=== PATIENT | female | born 1940 | race Caucasian/White ===

== ENCOUNTER 2018-04-08 11:22 | Inpatient (IN) ==
[2018-04-08] MEDS ORDERED: levoFLOXacin 250 MG TABLET PO STA (11:44)
[2018-04-08] MEDS ORDERED: SODIUM CHLORIDE 0.9% 1000ML 1,000 ML IV SCH (11:45)
[2018-04-08 12:00] LABS: Hematocrit (blood only) 38.7 % (37-47); Hemoglobin 12.9 g/dL (12.0-16.0); Mean Corpuscular Hgb Conc 33.3 g/dL (32-36); Mean Corpuscular Volume 100.3 fL (80-100); Platelet Count 480 K/uL (130-400); RDW Coefficient of Variation 13.4 % (11.5-14.5); RDW Standard Deviation 49.4 fL (36.4-46.3); Red Blood Count 3.86 M/uL (4.2-5.4); White Blood Count 24.12 K/uL (4.8-10.8)
[2018-04-08 12:08] LABS: Partial Thromboplastin Ratio 1.3; Partial Thromboplastin Time 32.8 Seconds (21.0-31.0); Prothrombin Time 10.5 Seconds (9.0-12.0)
--- NOTE | 2018-04-08 12:11 | XRay Report ---
XR chest 1V portable CLINICAL HISTORY: Dyspnea COMPARISON STUDY: None FINDINGS: Thoracolumbar scoliosis. Tortuous thoracic aorta. Moderate emphysematous change. Developing components of mild congestive failure with a potential wilmer y parenchymal infiltrate medial left base. IMPRESSION: 1. Thoracolumbar scoliosis. 2. Emphysematous change. 3. Pulmonary vascular congestion with a potential superimposed left basilar infiltrate. The above report was generated using voice recognition software. It may contain grammatical, syntax or spelling errors. Electronically signed by: Cachorro Richards M.D. 04/08/2018 12:10 PM
[2018-04-08 12:17] LABS: Alanine Aminotransferase 15 U/L (12-78); Albumin Level 2.8 gm/dl (3.4-5.0); Aspartate Aminotransferase 19 U/L (15-37); BUN Creatinine Ratio 15.6 (10-20); Blood Urea Nitrogen 11 mg/dl (7-18); Calcium 9.5 mg/dl (8.5-10.1); Carbon Dioxide 28 mmol/L (21-32); Chloride 98 mmol/L (98-107); Creatinine Clr Calc Pharmacy 41.6 ml/min; Est GFR (African American) 94.3; Est GFR (Non-African American) 81.3; Glucose 104 mg/dl (70-99); Potassium 2.8 mmol/L (3.5-5.1); Sodium 133 mmol/L (136-145)
[2018-04-08 12:20] LABS: Albumin Globulin Ratio 0.6 (0.9-2); Alkaline Phosphatase 106 U/L (45-117); Bilirubin,Total 0.6 mg/dl (0.2-1); Globulin 4.9 gm/dl (2.5-4.0); Total Protein 7.7 gm/dl (6.4-8.2); Troponin I < 0.015 ng/ml (0-0.045)
[2018-04-08 12:25] LABS: Basophils # (auto) 0.05 K/uL (0-0.2); Basophils % (auto) 0.2 %; Dohle Bodies 1+; Immature Granulocytes # (auto) 0.11 K/uL (0.00-0.02); Immature Granulocytes % (auto) 0.5 %; Lymphocytes # (auto) 0.72 K/uL (1.2-3.4); Monocytes # (auto) 1.67 K/uL (0.11-0.59); Monocytes % (auto) 6.9 %; Neutrophils # (auto) 21.57 K/uL (1.4-6.5); Neutrophils % (auto) 89.4 %
[2018-04-08 12:56] LABS: Influenza A virus by PCR Neg for Influ A (Neg); Influenza B virus by PCR Neg for Influ B (Neg)
[2018-04-08] MEDS ORDERED: cefTRIAXone SODIUM 1,000 MG/50 ML BAG IV STA (13:07)
--- NOTE | 2018-04-08 14:13 | History & Physical Report ---
Date of Service April 08, 2018 Assessment & Plan (1) Pneumonia: (2) COPD exacerbation: Reported green productive cough x 1 week with SOB for couple of days. Sent from walk in clinic with reported pulse ox:90% on RA and was given albuterol neb there. In ER T: 37.7, P: 98, R: up to 28, BP: 142/70, 97% on RA. WBC: 24, Hgb:12.9, BUN : 11, Cr: 0.7, negative troponin. Negative influenza swab. Lactate: 1.3 CXR: Thoracolumbar scoliosis. Emphysematous change. Pulmonary vascular congestion with a potential superimposed left basilar infiltrate. In ER given 1L NSS, Levaquin 750mg IV, Rocephin 1GM IV Suspected pneumonia and COPD exacerbation -Pt appears dehydrated -Pending blood cultures -MRSA swab -Rocephin, doxycycline -Xopenex/Atrovent nebs -IVF -CBC, BMP, magnesium in am (3) Hypokalemia: K: 2.8 -replace and monitor (4) Tobacco abuse: -smoking cessation advised -nicotine patch DVT Prophylaxis -lovenox SQ Disposition admit__ DNR as per discussion with pt Follows with Julia Ruiz PA-C [facility] for routine care Pt was seen with Dr Lynch. See addendum History of Present Illness Chief Complaint: SOB and cough Primary Care Provider: Julia Ruiz PA-C Pt is 77 y/o F with PMH tobacco abuse presented to ER with c/o green productive cough x 1 week. States having SOB and chest tightness past couple of days. Has been having tactile fever, hasn't taken temperature and has decreased appetite with decreased oral intake past couple of days. Pt reports went to walk in clinic today at [facility] and reported O2 sat at 90% and was given albuterol treatment and referred to ER. Denies influenza vaccine this season. Denies ill contacts or recent antibiotic use. Reports hx pneumonia last winter that did not require hospitalization. She denies any known medical problems. Denies fever/chills, diaphoresis, N/V/D/C, YOUNG, dizziness, syncope, vision changes, neck pain, CP, orthopnea, palpitations, hemoptysis, sore throat , choking, otalgia, abdominal pain, paresthesias, extremity weakness, extremity edema, rashes, urinary symptoms. Denies hx MRSA, or recent hospitalizations. Allergies Allergy/AdvReac Type Severity Reaction Status Date / Time No Known Allergies Allergy Unverified 04/08/18 11:57 Home Medications Home Medications Medication Instructions Recorded Confirmed Type aspirin 81 mg PO DAILY 04/08/18 04/08/18 History Past Med/Surg History Medical History Tobacco abuse (Chronic) Smoker Surgical History History of cervical spinal surgery (Resolved) History of appendectomy (Resolved) Social History Current Living Situation: Family Current Living Situation Comment: LIVES WITH DAUGHTER Other Information That Helps Us Care for You: No Feels Safe at Home: Yes Safety Concerns: Feels Safe At This Time Smoking Status: Current every day smoker Tobacco Type: cigarettes Cigarettes per Day: approx 1ppd x 56 years Hx Alcohol Use: Yes Alcohol type: beer Alcohol Intake Frequency: a few times a week Hx Substance Use: No Beliefs That Will Affect Care: None Preferred Language: Wolof Communication Ability: Effective Review of Systems All systems reviewed & are unremarkable except as noted in HPI & below Physical Exam 2 Vital Signs (Past 24 Hours): Last Vital Signs Temp 37.7 C H 04/08/18 11:28 Pulse 92 H 04/08/18 13:05 Resp 28 H 04/08/18 13:05 BP 124/64 04/08/18 13:05 Pulse Ox 99 04/08/18 13:05 Physical Exam: General: thin, mild respirtory distress Head: normocephalic, atraumatic Eyes: conjunctiva non-injected, anicteric ENT: normal inspection external ears, nose, mucous membranes dry Neck: supple, trachea midline, non-tender Lungs: R:28 without retractions, speaks sentence, 92% on RA, diminished throughout CV: RRR, no murmur, no pretibial edema Abd: normal BS, soft, non-tender Ext: no cyanosis, no calf tenderness Neuro: A&O x 3, no focal deficits noted, normal affect Skin: warm, dry Results & Data Laboratory Results Short CBC 04/08/18 Range/Units 11:50 WBC 24.12 H (4.8-10.8) K/uL Hgb 12.9 (12.0-16.0) g/dL Hct 38.7 (37-47) % Plt Count 480 H (130-400) K/uL BMP 04/08/18 11:50 Sodium 133 L Potassium 2.8 L Chloride 98 Carbon Dioxide 28 BUN 11 Creatinine 0.72 Glucose 104 H Calcium 9.5 Cardiac Enzymes 04/08/18 Range/Units 11:50 Troponin I < 0.015 (0-0.045) ng/ml Liver Function 04/08/18 Range/Units 11:50 Total Bilirubin 0.6 (0.2-1) mg/dl AST 19 (15-37) U/L ALT 15 (12-78) U/L Alkaline Phosphatase 106 (45-117) U/L Albumin 2.8 L (3.4-5.0) gm/dl Diagnostic Findings CXR: IMPRESSION: 1. Thoracolumbar scoliosis. 2. Emphysematous change. 3. Pulmonary vascular congestion with a potential superimposed left basilar infiltrate. Supervising Physician Co-Signing Physician Notes Agree with above h and p. Briefly 77F with hx of tobacco abuse presents with sob and cough for last few days. Bringing sputum greenish color.No chest pain. No nausea. No diarrhea or constipation. Hemodynamics stable. p/e Ge not in acute distress Cvs s1 and s2 heard no murmurs Rs No accessory muscle use b/l rhonchi heard Abd benign Brushing Operator non focal Ext no edema Labs Reviewed a/p COPD ex Possible pneumonia Iv rocephin and doxycycline nebs atc and prn oxygen iv steroids follow cultures Tobacco abuse counselling
[2018-04-08] MEDS ORDERED: ACETAMINOPHEN 325 MG TAB PO PRN (16:15)
[2018-04-08 16:27] LABS: Appearance Urine Clear (Clear); Bacteria Urine Automated Negative (Negative); Bilirubin Urine Negative (Negative); Color Urine Yellow; Epithelial Cell Urine Auto >30 /lpf (0-5); Glucose Urine UA Negative (Negative); Ketones Urine Trace (Negative); Leukocyte Esterase Urine Trace (Negative); Nitrite Urine Negative (Negative); Protein Urine 1+ (Negative); Specific Gravity Urine 1.014 (1.000-1.030); Urobilinogen Urine Negative (Negative); pH Urine 5.5 (4.5-7.5)
[2018-04-08] MEDS ORDERED: POTASSIUM CHLORIDE 20 MEQ TABCR PO ONE (16:45)
[2018-04-08] MEDS ORDERED: POTASSIUM CHLORIDE 40 MEQ in SODIUM CHLORIDE 0.9% 1000ML 1,000 ML IV SCH ×2 (17:00→20:40)
--- NOTE | 2018-04-08 17:40 | Emergency Department Note ---
Entered by Ilya Mac acting as a scribe for History of Present Illness General Chief complaint: Illness Stated complaint: COUGH, SHORTNESS OF BREATH Source: patient Limitations: no limitations History of Present Illness Provider complaint: Cough/SOB Onset (ago): week(s) (1) Location: chest (Cough/SOB) Pain Consistency: + other (persistent) Maximum Pain Intensity: 2 Quality: + other (Cough/SOB) Associated symptoms: + shortness of breath Treatments prior to arrival: other (Evaluation by [facility] in [place]) The patient is a 77 year old female who presents to the Emergency Room with complaints of a persistent cough and shortness of breath for the past week. The patient states that her symptoms began about 1 week ago with a cough. The cough has persisted over the past 7 days and she is now short of breath. The shortness of breath is associated to the cough, and she breaths well when she is up and moving around as long as she is not coughing. The patient denies any other abdominal pain, nausea, vomiting, diarrhea, or fevers. She did visit [facility] in [place] today who referred her to the Emergency Department for hypoxia on their evaluation. Home Medications Home Medications Medication Instructions Recorded Confirmed Type aspirin 81 mg PO DAILY 04/08/18 04/08/18 History Allergies Allergy/AdvReac Type Severity Reaction Status Date / Time No Known Allergies Allergy Unverified 04/08/18 11:57 Past Med/Surg History Medical History Tobacco abuse (Chronic) Smoker Surgical History History of cervical spinal surgery (Resolved) History of appendectomy (Resolved) Social History Current Living Situation: Family Current Living Situation Comment: LIVES WITH DAUGHTER Other Information That Helps Us Care for You: No Feels Safe at Home: Yes Safety Concerns: Feels Safe At This Time Smoking Status: Current every day smoker Tobacco Type: cigarettes Cigarettes per Day: approx 1ppd x 56 years Hx Alcohol Use: Yes Alcohol type: beer Alcohol Intake Frequency: a few times a week Hx Substance Use: No Beliefs That Will Affect Care: None Preferred Language: Cymro Communication Ability: Effective Review of Systems See HPI for pertinent positives & negatives. and A total of 10 systems reviewed and were otherwise negative Physical Exam Vital Signs Vital Signs - 24 hr 04/08/18 11:28 04/08/18 12:00 04/08/18 12:12 Temperature 37.7 C H Temperature Source Oral Sepsis Recent Fever Within 48 Hours No Sepsis New/Unexplained Change in Mental Status No Sepsis Action Taken by Nursing No Action Required Pulse Rate 98 H Pulse Rate [Apical] 93 H Pulse Rhythm [Apical] Respiratory Rate 16 26 H Respiratory Effort / Characteristics Non-Labored Respiratory Depth Normal Respiratory Pattern Regular Blood Pressure 142/70 H Blood Pressure [Left Arm] 133/82 Blood Pressure Mean 94 Blood Pressure Mean [Left Arm] 99 Blood Pressure Position Sitting Blood Pressure Position [Left Arm] Pulse Oximetry 97 99 99 Oxygen Delivery Method Room Air Room Air Room Air Oxygen Flow Rate 04/08/18 13:05 04/08/18 13:51 04/08/18 14:34 Temperature Temperature Source Sepsis Recent Fever Within 48 Hours Sepsis New/Unexplained Change in Mental Status Sepsis Action Taken by Nursing Pulse Rate Pulse Rate [Apical] 92 H 87 Pulse Rhythm [Apical] Respiratory Rate 28 H 28 H Respiratory Effort / Characteristics Short of Breath SOB on Exertion Respiratory Depth Respiratory Pattern Tachypnea Blood Pressure Blood Pressure [Left Arm] 124/64 125/62 Blood Pressure Mean Blood Pressure Mean [Left Arm] 84 83 Blood Pressure Position Blood Pressure Position [Left Arm] Pulse Oximetry 99 98 Oxygen Delivery Method Room Air Room Air Room Air Oxygen Flow Rate 04/08/18 16:15 Temperature 38.4 C H Temperature Source Oral Sepsis Recent Fever Within 48 Hours Sepsis New/Unexplained Change in Mental Status Sepsis Action Taken by Nursing Pulse Rate Pulse Rate [Apical] 90 Pulse Rhythm [Apical] Regular Respiratory Rate 18 Respiratory Effort / Characteristics Spontaneous SOB on Exertion Respiratory Depth Normal Respiratory Pattern Blood Pressure Blood Pressure [Left Arm] 149/64 H Blood Pressure Mean Blood Pressure Mean [Left Arm] 92 Blood Pressure Position Blood Pressure Position [Left Arm] Lying Pulse Oximetry 94 Oxygen Delivery Method Nasal Cannula Oxygen Flow Rate 2 GENERAL: Sitting up in bed, alert, ill appearing, mal nourished, cachectic appearing. EYE EXAM: normal conjunctiva. OROPHARYNX: no exudate, no erythema, lips, buccal mucosa, and tongue normal and mucous membranes are moist NECK: supple, no nuchal rigidity, no adenopathy, non-tender LUNGS: Diminished breath sounds throughout. Normal chest wall mechanics HEART: no murmurs, S1 normal and S2 normal ABDOMEN: abdomen soft, non-tender, normo-active bowel, sounds, no masses, no rebound or guarding. BACK: Back is symmetrical on inspection and there is no deformity, no midline tenderness, no CVA tenderness. SKIN: no rashes and no bruising UPPER EXTREMITIES: upper extremities are grossly normal. LOWER EXTREMITIES: No pitting edema. Calves are equal bilaterally. NEURO EXAM: Normal sensorium, cranial nerves II-XII grossly intact, normal speech, no gross weakness of arms, no gross weakness of legs. Course ED COURSE: Vital signs were reviewed and showed febrile and tachycardia. The patients medical record was reviewed The above diagnostic studies were performed and reviewed. ED treatments and interventions as stated above. 1138: The patient was evaluated in room B9. A complete history and physical examination was performed. 1309:I discussed my findings with the patient and she understands and agrees with the treatment plan. Based on the patients age, coexisting illnesses, exam and lab findings the decision to treat as an inpatient was made. The patient remained stable while under my care. The patient will be evaluated for further management. 1322: I reviewed the patient's case with Ying Hahn. She will evaluate the patient for further management. Consultations Consultation #1: 1322: I reviewed the patient's case with Ying Downey Yamilex BYRNES. She will evaluate the patient for further management. Administered Medications Acetaminophen (Tylenol) 650 mg PO Q4H PRN PRN Reason: pain/fever Stop: 05/08/18 16:14 Last Admin: 04/08/18 17:05 Dose: 650 mg Potassium Chloride 40 meq/ (Sodium Chloride) 1,020 mls @ 100 mls/hr IV .[id number] MAHAMED Stop: 04/09/18 13:23 Last Admin: 04/08/18 17:11 Dose: 100 mls/hr Discontinued Medications Sodium Chloride (Nss 1000ml) 1,000 mls @ 999 mls/hr IV .[id number] MAHAMED Stop: 04/08/18 12:45 Last Infusion: 04/08/18 13:12 Dose: 0 mls/hr Admin: 04/08/18 12:11 Dose: 999 mls/hr Ceftriaxone Sodium (Rocephin) 1,000 mg in 50 mls @ 100 mls/hr IV NOW STA Stop: 04/08/18 13:36 Last Infusion: 04/08/18 13:49 Dose: 0 mls/hr Admin: 04/08/18 13:18 Dose: 100 mls/hr Levofloxacin (Levaquin) 750 mg PO NOW STA Stop: 04/08/18 11:45 Last Admin: 04/08/18 12:09 Dose: 750 mg Potassium Chloride (Klor-Con M20) 40 meq PO NOW ONE Stop: 04/08/18 16:46 Last Admin: 04/08/18 17:06 Dose: 40 meq Medical Decision Making Differential Diagnosis Differential diagnosis: Etiologies such as infections, reactive airway disease, COPD, pneumonia, pleural effusion, pulmonary edema, ARDS, pneumothorax, CHF, cardiac ischemia, cardiac tamponade, dysrhythmia, anemia, pulmonary embolism, musculoskeletal, gastrointestinal process, as well as others were entertained. Medical Records Attestation: I reviewed the patient's medical records. Home Medications Current Medication List: was personally reviewed by me Laboratory Data Attestation: I reviewed the patient's lab results. Result diagrams: 04/08/18 11:50 04/08/18 11:50 Lab Results 04/08/18 04/08/18 04/08/18 Range/Units 11:50 11:50 11:50 WBC 24.12 H (4.8-10.8) K/uL RBC 3.86 L (4.2-5.4) M/uL Hgb 12.9 (12.0-16.0) g/dL Hct 38.7 (37-47) % MCV 100.3 H (80-100) fL MCH 33.4 (25-34) pg MCHC 33.3 (32-36) g/dL RDW Std Deviation 49.4 H (36.4-46.3) fL RDW Coeff of Alex 13.4 (11.5-14.5) % Plt Count 480 H (130-400) K/uL MPV 9.0 (7.4-10.4) fL Immature Gran % (Auto) 0.5 % Neut % (Auto) 89.4 % Lymph % (Auto) 3.0 % [place] % (Auto) 6.9 % Eos % (Auto) 0.0 % Baso % (Auto) 0.2 % Immature Gran # (Auto) 0.11 H (0.00-0.02) K/uL Neut # (Auto) 21.57 H (1.4-6.5) K/uL Lymph # (Auto) 0.72 L (1.2-3.4) K/uL [place] # (Auto) 1.67 H (0.11-0.59) K/uL Eos # (Auto) 0.00 (0-0.5) K/uL Baso # (Auto) 0.05 (0-0.2) K/uL Dohle Bodies 1+ PT 10.5 (9.0-12.0) Seconds INR 1.0 (0.9-1.1) APTT 32.8 H (21.0-31.0) Seconds PTT Ratio 1.3 Sodium 133 L (136-145) mmol/L Potassium 2.8 L (3.5-5.1) mmol/L Chloride 98 (98-107) mmol/L Carbon Dioxide 28 (21-32) mmol/L Anion Gap 7.0 (3-11) BUN 11 (7-18) mg/dl Creatinine 0.72 (0.6-1.2) mg/dl Est Cr Clr Drug Dosing 41.6 ml/min Est GFR ( Amer) 94.3 Est GFR (Non-Af Amer) 81.3 BUN/Creatinine Ratio 15.6 (10-20) Glucose 104 H (70-99) mg/dl Lactate (0.4-2.0) mmol/L Calcium 9.5 (8.5-10.1) mg/dl Magnesium (1.8-2.4) mg/dl Total Bilirubin 0.6 (0.2-1) mg/dl AST 19 (15-37) U/L ALT 15 (12-78) U/L Alkaline Phosphatase 106 (45-117) U/L Troponin I < 0.015 (0-0.045) ng/ml Total Protein 7.7 (6.4-8.2) gm/dl Albumin 2.8 L (3.4-5.0) gm/dl Globulin 4.9 H (2.5-4.0) gm/dl Albumin/Globulin Ratio 0.6 L (0.9-2) Urine Color Urine Appearance (Clear) Urine pH (4.5-7.5) Ur Specific [place] (1.000-1.030) Urine Protein (Negative) Urine Glucose (UA) (Negative) Urine Ketones (Negative) Urine Blood (Negative) Urine Nitrite (Negative) Urine Bilirubin (Negative) Urine Urobilinogen (Negative) Ur Leukocyte Esterase (Negative) Urine WBC (Auto) (0-5) /hpf Urine RBC (Auto) (0-4) /hpf U Hyaline Cast (Auto) (0-5) /lpf U Epithel Cells (Auto) (0-5) /lpf Urine Bacteria (Auto) (Negative) Nasal Screen MRSA (PCR) (Negative) Influenza Type A (PCR) (Neg) Influenza Type B (PCR) (Neg) 04/08/18 04/08/18 04/08/18 Range/Units 11:50 11:58 13:52 WBC (4.8-10.8) K/uL RBC (4.2-5.4) M/uL Hgb (12.0-16.0) g/dL Hct (37-47) % MCV (80-100) fL MCH (25-34) pg MCHC (32-36) g/dL RDW Std Deviation (36.4-46.3) fL RDW Coeff of Alex (11.5-14.5) % Plt Count (130-400) K/uL MPV (7.4-10.4) fL Immature Gran % (Auto) % Neut % (Auto) % Lymph % (Auto) % [place] % (Auto) % Eos % (Auto) % Baso % (Auto) % Immature Gran # (Auto) (0.00-0.02) K/uL Neut # (Auto) (1.4-6.5) K/uL Lymph # (Auto) (1.2-3.4) K/uL [place] # (Auto) (0.11-0.59) K/uL Eos # (Auto) (0-0.5) K/uL Baso # (Auto) (0-0.2) K/uL Dohle Bodies PT (9.0-12.0) Seconds INR (0.9-1.1) APTT (21.0-31.0) Seconds PTT Ratio Sodium (136-145) mmol/L Potassium (3.5-5.1) mmol/L Chloride (98-107) mmol/L Carbon Dioxide (21-32) mmol/L Anion Gap (3-11) BUN (7-18) mg/dl Creatinine (0.6-1.2) mg/dl Est Cr Clr Drug Dosing ml/min Est GFR ( Amer) Est GFR (Non-Af Amer) BUN/Creatinine Ratio (10-20) Glucose (70-99) mg/dl Lactate 1.3 (0.4-2.0) mmol/L Calcium (8.5-10.1) mg/dl Magnesium 2.2 (1.8-2.4) mg/dl Total Bilirubin (0.2-1) mg/dl AST (15-37) U/L ALT (12-78) U/L Alkaline Phosphatase (45-117) U/L Troponin I (0-0.045) ng/ml Total Protein (6.4-8.2) gm/dl Albumin (3.4-5.0) gm/dl Globulin (2.5-4.0) gm/dl Albumin/Globulin Ratio (0.9-2) Urine Color Urine Appearance (Clear) Urine pH (4.5-7.5) Ur Specific [place] (1.000-1.030) Urine Protein (Negative) Urine Glucose (UA) (Negative) Urine Ketones (Negative) Urine Blood (Negative) Urine Nitrite (Negative) Urine Bilirubin (Negative) Urine Urobilinogen (Negative) Ur Leukocyte Esterase (Negative) Urine WBC (Auto) (0-5) /hpf Urine RBC (Auto) (0-4) /hpf U Hyaline Cast (Auto) (0-5) /lpf U Epithel Cells (Auto) (0-5) /lpf Urine Bacteria (Auto) (Negative) Nasal Screen MRSA (PCR) (Negative) Influenza Type A (PCR) Neg for Influ A (Neg) Influenza Type B (PCR) Neg for Influ B (Neg) 04/08/18 04/08/18 Range/Units 16:00 16:05 WBC (4.8-10.8) K/uL RBC (4.2-5.4) M/uL Hgb (12.0-16.0) g/dL Hct (37-47) % MCV (80-100) fL MCH (25-34) pg MCHC (32-36) g/dL RDW Std Deviation (36.4-46.3) fL RDW Coeff of Alex (11.5-14.5) % Plt Count (130-400) K/uL MPV (7.4-10.4) fL Immature Gran % (Auto) % Neut % (Auto) % Lymph % (Auto) % [place] % (Auto) % Eos % (Auto) % Baso % (Auto) % Immature Gran # (Auto) (0.00-0.02) K/uL Neut # (Auto) (1.4-6.5) K/uL Lymph # (Auto) (1.2-3.4) K/uL [place] # (Auto) (0.11-0.59) K/uL Eos # (Auto) (0-0.5) K/uL Baso # (Auto) (0-0.2) K/uL Dohle Bodies PT (9.0-12.0) Seconds INR (0.9-1.1) APTT (21.0-31.0) Seconds PTT Ratio Sodium (136-145) mmol/L Potassium (3.5-5.1) mmol/L Chloride (98-107) mmol/L Carbon Dioxide (21-32) mmol/L Anion Gap (3-11) BUN (7-18) mg/dl Creatinine (0.6-1.2) mg/dl Est Cr Clr Drug Dosing ml/min Est GFR ( Amer) Est GFR (Non-Af Amer) BUN/Creatinine Ratio (10-20) Glucose (70-99) mg/dl Lactate (0.4-2.0) mmol/L Calcium (8.5-10.1) mg/dl Magnesium (1.8-2.4) mg/dl Total Bilirubin (0.2-1) mg/dl AST (15-37) U/L ALT (12-78) U/L Alkaline Phosphatase (45-117) U/L Troponin I (0-0.045) ng/ml Total Protein (6.4-8.2) gm/dl Albumin (3.4-5.0) gm/dl Globulin (2.5-4.0) gm/dl Albumin/Globulin Ratio (0.9-2) Urine Color Yellow Urine Appearance Clear (Clear) Urine pH 5.5 (4.5-7.5) Ur Specific [place] 1.014 (1.000-1.030) Urine Protein 1+ H (Negative) Urine Glucose (UA) Negative (Negative) Urine Ketones Trace H (Negative) Urine Blood Negative (Negative) Urine Nitrite Negative (Negative) Urine Bilirubin Negative (Negative) Urine Urobilinogen Negative (Negative) Ur Leukocyte Esterase Trace H (Negative) Urine WBC (Auto) 10-30 H (0-5) /hpf Urine RBC (Auto) 0-4 (0-4) /hpf U Hyaline Cast (Auto) 1-5 (0-5) /lpf U Epithel Cells (Auto) >30 H (0-5) /lpf Urine Bacteria (Auto) Negative (Negative) Nasal Screen MRSA (PCR) Negative (Negative) Influenza Type A (PCR) (Neg) Influenza Type B (PCR) (Neg) Imaging Data Attestation: I personally reviewed and interpreted this imaging study as follows : Radiologist's Impression: XR chest 1V portable CLINICAL HISTORY: Dyspnea COMPARISON STUDY: None FINDINGS: Thoracolumbar scoliosis. Tortuous thoracic aorta. Moderate emphysematous change. Developing components of mild congestive failure with a potential early parenchymal infiltrate medial left base. IMPRESSION: 1. Thoracolumbar scoliosis. 2. Emphysematous change. 3. Pulmonary vascular congestion with a potential superimposed left basilar infiltrate. The above report was generated using voice recognition software. It may contain grammatical, syntax or spelling errors. Electronically signed by: Cachorro Richards M.D. 04/08/2018 12:10 PM ECG Data Attestation: I personally reviewed and interpreted this ECG as follows: Indication: SOB/dyspnea Rate (beats per minute): 98 Rhythm: sinus rhythm Findings: + other (RAD, poor baseline in anterior), + RBBB, + ST depression ( inferior) and + T-wave inversion (septal) Blood Pressure Blood Pressure Findings: Elevated blood pressure Blood Pressure Disposition: elevated BP felt to be situational MDM Narrative Patient is a 77-year-old female who presents to the ER referred in by PCP for hypoxia. She has upper respiratory symptoms. Upon arrival she was found to be febrile at 38.4 and tachycardic. She is placed on 2 L nasal cannula. Labs were obtained and showed a leukocytosis of 24,000. INR was unremarkable. BMP with mild hypokalemia. Lactate was normal. UA was contaminated. Influenza a and B were negative. Chest x-ray does suggest pneumonia. Patient was given IV fluids, IV Levaquin, IV Rocephin and both the patient and daughter were updated at bedside. Patient was admitted to the hospital with sepsis secondary to pneumonia on antibiotics following fluid resuscitation. Impression & Plan Sepsis, Pneumonia, Hypoxia Discharge Plan Visit Data *Final* Discharge Date/Time: 04/08/18 14:54 Chief Complaint: Illness Stated Complaint: COUGH, SHORTNESS OF BREATH ED Provider: Jovanny Caldera Discharge Problem: Sepsis, Pneumonia, Hypoxia Patient Disposition: Admitted As Inpatient Discharge Instructions Interventions: ED Discharge Assessment Last Done: 04/08/18 14:54 The scribe's documentation has been prepared under my direction and personally reviewed by me in its entirety. I confirm that the note above accurately reflects all work, treatment, procedures, and medical decision making performed by me.
[2018-04-08] MEDS: IPRATROPIUM BROMIDE NEB SOLN 0.02% 2.5 ML VIAL INH SCH (18:57)
[2018-04-08] MEDS: LEVALBUTEROL HCL 0.63 MG/3 ML NEB NEB SCH (18:57)
[2018-04-08] MEDS: methylPREDNISolone 40 MG in SYRINGE 0 ML IV SCH (19:01)
[2018-04-08] MEDS ORDERED: COUGH DROP (SUGAR FREE) LOZ 24 LOZ/1 BOX BUCCAL PRN (19:49)
[2018-04-08] MEDS ORDERED: COUGH DROP (SUGAR FREE) LOZ 24 LOZ/1 BOX BUCCAL ONE (19:53)
[2018-04-08] MEDS: GUAIFENESIN/CODEINE 100MG/10MG 5ML UDC PO PRN (19:56)
[2018-04-08] MEDS ORDERED: XOPENEX/ATROVENT 0.63mg/0.5MG NEB COMBO NEB SCH (20:00)
[2018-04-08 20:33] LABS: BUN Creatinine Ratio 18.5 (10-20); Calcium 8.4 mg/dl (8.5-10.1); Creatinine Clr Calc Pharmacy 51.6 ml/min; Est GFR (African American) 103.8; Est GFR (Non-African American) 89.5
[2018-04-08 20:34] LABS: Potassium 3.6 mmol/L (3.5-5.1)
[2018-04-08] MEDS: DOXYCYCLINE HYCLATE 100 MG in DEXTROSE 5% 100 ML IV SCH (21:16)
[2018-04-08] MEDS: ENOXAPARIN INJ 30 MG/0.3 ML SYR SQ SCH (21:21)
[2018-04-09] MEDS: GUAIFENESIN/CODEINE 100MG/10MG 5ML UDC PO PRN ×3 (01:23→20:57)
[2018-04-09] MEDS: methylPREDNISolone 40 MG in SYRINGE 0 ML IV SCH ×2 (01:23→09:37)
[2018-04-09] MEDS: IPRATROPIUM BROMIDE NEB SOLN 0.02% 2.5 ML VIAL INH SCH ×4 (02:03→20:00)
[2018-04-09] MEDS: LEVALBUTEROL HCL 0.63 MG/3 ML NEB NEB SCH ×4 (02:03→20:00)
[2018-04-09] MEDS ORDERED: NSS + 20MEQ KCL 20 MEQ/1,000 ML BAG IV SCH (03:00)
[2018-04-09 07:42] LABS: Basophils # (auto) 0.01 K/uL (0-0.2); Basophils % (auto) 0.1 %; Hematocrit (blood only) 33.2 % (37-47); Hemoglobin 10.9 g/dL (12.0-16.0); Immature Granulocytes # (auto) 0.06 K/uL (0.00-0.02); Immature Granulocytes % (auto) 0.4 %; Lymphocytes # (auto) 0.38 K/uL (1.2-3.4); Lymphocytes % (auto) 2.6 %; Mean Corpuscular Hgb Conc 32.8 g/dL (32-36); Mean Corpuscular Volume 100.9 fL (80-100); Mean Platelet Volume 9.1 fL (7.4-10.4); Monocytes # (auto) 0.25 K/uL (0.11-0.59); Monocytes % (auto) 1.7 %; Neutrophils % (auto) 95.2 %; Platelet Count 469 K/uL (130-400); RDW Coefficient of Variation 13.5 % (11.5-14.5); RDW Standard Deviation 49.9 fL (36.4-46.3); Red Blood Count 3.29 M/uL (4.2-5.4)
[2018-04-09] MEDS: cefTRIAXone SODIUM 1,000 MG in DEXTROSE 5% 50 ML IV SCH (08:17)
[2018-04-09] MEDS: NICOTINE 14 MG/24 HR PATCH TD SCH (08:17)
[2018-04-09] MEDS: ASPIRIN 81 MG ECTAB PO SCH (08:17)
[2018-04-09 08:24] LABS: BUN Creatinine Ratio 24.8 (10-20); Calcium 8.8 mg/dl (8.5-10.1); Creatinine Clr Calc Pharmacy 68.7 ml/min; Est GFR (African American) 112.8; Est GFR (Non-African American) 97.3; Magnesium 2.1 mg/dl (1.8-2.4); Potassium 4.2 mmol/L (3.5-5.1)
[2018-04-09] MEDS: DOXYCYCLINE HYCLATE 100 MG in DEXTROSE 5% 100 ML IV SCH ×2 (08:25→21:01)
--- NOTE | 2018-04-09 13:48 | Hospitalist Progress Note ---
Date of Service April 09, 2018 Assessment & Plan (1) Pneumonia: (2) COPD exacerbation: Sepsis Pneumonia-community acquired Mild COPD exacerbation Dehydration --CXR:Thoracolumbar scoliosis. Emphysematous change. Pulmonary vascular congestion with a potential superimposed left basilar infiltrate. --Received IV fluids Blood Culture:pending MRSA swab: Negative Flu Screen; Negative Continue Rocephin, doxycycline Day #2 Continue nebs, Solu Medrol (3) Hypokalemia: Resolved Monitor electrolytes (4) Tobacco abuse: smoking cessation advised nicotine patch Moderate Protein-calorie malnutrition Cachexia BMI:16.5 Bender Machine consulted DVT Px: lovenox SQ Code Status: DNR Disposition Follows with Julia Ruiz PA-C [facility] for routine care Subjective Patient is seen and examined at bedside Doing much better today Cough is improving Denies chest pain, dyspnea, dizziness, abd pain No other complaints Physical Exam 2 Vital Signs (Past 24 Hours): Last Vital Signs Temp 36.8 C 04/09/18 11:43 Pulse 72 04/09/18 11:43 Resp 20 04/09/18 11:43 BP 122/74 04/09/18 11:43 Pulse Ox 95 04/09/18 11:43 Physical Exam: Physical Exam: Vitals signs as noted above General Appearance:Thin, no apparent distress Head: normocephalic, Atraumatic Eyes: normal inspection, EOMI Neck: supple, Trachea midline Respiratory/Chest: Decreased breath sounds, + Right basal crackles Cardiovascular: S1, S2, No murmur Abdomen/GI:Soft, Non tender, Bowel sounds present Extremities/Musculoskelatal:normal inspection, no edema Neurologic/Psych:AAOX3, grossly no focal neurological deficits Skin: normal color, warm Results & Data Laboratory Results Short CBC 04/09/18 Range/Units 07:13 WBC 14.70 H (4.8-10.8) K/uL Hgb 10.9 L (12.0-16.0) g/dL Hct 33.2 L (37-47) % Plt Count 469 H (130-400) K/uL BMP 04/08/18 04/09/18 19:53 07:13 Sodium 134 L 136 Potassium 3.6 D 4.2 D Chloride 99 104 Carbon Dioxide 25 28 BUN 11 11 Creatinine 0.58 L 0.45 L Glucose 110 H 133 H Calcium 8.4 L 8.8 Urine 04/08/18 Range/Units 16:00 Urine Color Yellow Urine Appearance Clear (Clear) Urine pH 5.5 (4.5-7.5) Ur Specific [place] 1.014 (1.000-1.030) Urine Protein 1+ H (Negative) Urine Glucose (UA) Negative (Negative) _ (1) Pneumonia Aspiration pneumonia type: Laterality: unspecified laterality Lung location : unspecified part of lung Pneumonia type: due to unspecified organism Qualified Code(s): J18.9 - Pneumonia, unspecified organism
[2018-04-09] MEDS: ENOXAPARIN INJ 30 MG/0.3 ML SYR SQ SCH (20:58)
[2018-04-10] MEDS: IPRATROPIUM BROMIDE NEB SOLN 0.02% 2.5 ML VIAL INH SCH ×4 (01:51→19:21)
[2018-04-10] MEDS: LEVALBUTEROL HCL 0.63 MG/3 ML NEB NEB SCH ×4 (01:52→19:21)
[2018-04-10 07:02] LABS: Hematocrit (blood only) 31.9 % (37-47); Hemoglobin 10.1 g/dL (12.0-16.0); Mean Corpuscular Hgb Conc 31.7 g/dL (32-36); Mean Corpuscular Volume 101.3 fL (80-100); Mean Platelet Volume 9.2 fL (7.4-10.4); Platelet Count 456 K/uL (130-400); RDW Coefficient of Variation 13.8 % (11.5-14.5); RDW Standard Deviation 51.6 fL (36.4-46.3); Red Blood Count 3.15 M/uL (4.2-5.4); White Blood Count 16.29 K/uL (4.8-10.8)
[2018-04-10 07:28] LABS: BUN Creatinine Ratio 29.8 (10-20); Calcium 9.4 mg/dl (8.5-10.1); Creatinine Clr Calc Pharmacy 67.8 ml/min; Est GFR (African American) 111.2; Est GFR (Non-African American) 95.9; Potassium 3.7 mmol/L (3.5-5.1)
[2018-04-10] MEDS: ASPIRIN 81 MG ECTAB PO SCH (08:20)
[2018-04-10] MEDS: NICOTINE 14 MG/24 HR PATCH TD SCH (08:21)
[2018-04-10] MEDS ORDERED: methylPREDNISolone 40 MG in SYRINGE 0 ML IV SCH (09:00)
[2018-04-10] MEDS: cefTRIAXone SODIUM 1,000 MG in DEXTROSE 5% 50 ML IV SCH (09:47)
[2018-04-10] MEDS: DOXYCYCLINE HYCLATE 100 MG in DEXTROSE 5% 100 ML IV SCH ×2 (10:30→21:17)
--- NOTE | 2018-04-10 12:39 | Hospitalist Progress Note ---
Date of Service April 10, 2018 Assessment & Plan (1) Pneumonia: (2) COPD exacerbation: Sepsis Pneumonia-community acquired Mild COPD exacerbation Dehydration --CXR:Thoracolumbar scoliosis. Emphysematous change. Pulmonary vascular congestion with a potential superimposed left basilar infiltrate. --Received IV fluids Blood Culture: No growth to date MRSA swab: Negative Flu Screen; Negative Continue Rocephin, doxycycline Day #3 Continue nebs, Solu Medrol>>Transition to prednisone Wean off oxygen as able (3) Hypokalemia: Resolved Monitor electrolytes (4) Tobacco abuse: smoking cessation advised nicotine patch Moderate Protein-calorie malnutrition Cachexia BMI:16.5 It Admin consulted DVT Px: lovenox SQ Code Status: DNR Disposition Follows with Julia Ruiz PA-C [facility] for routine care Subjective Patient is seen and examined at bedside Patient continues to improve Less Cough Breathing improved Denies chest pain, dizziness, abd pain No new complaints Physical Exam 2 Vital Signs (Past 24 Hours): Last Vital Signs Temp 36.8 C 04/10/18 07:22 Pulse 66 04/10/18 07:22 Resp 20 04/10/18 07:22 BP 119/72 04/10/18 07:22 Pulse Ox 90 04/10/18 07:22 Physical Exam: Physical Exam: Vitals signs as noted above General Appearance:Thin, no apparent distress Head: normocephalic, Atraumatic Eyes: normal inspection, EOMI Neck: supple, Trachea midline Respiratory/Chest: Decreased breath sounds, CTA Cardiovascular: S1, S2, No murmur Abdomen/GI:Soft, Non tender, Bowel sounds present Extremities/Musculoskelatal:normal inspection, no edema Neurologic/Psych:AAOX3, grossly no focal neurological deficits Skin: normal color, warm Results & Data Laboratory Results Short CBC 04/10/18 Range/Units 06:44 WBC 16.29 H (4.8-10.8) K/uL Hgb 10.1 L (12.0-16.0) g/dL Hct 31.9 L (37-47) % Plt Count 456 H (130-400) K/uL BMP 04/10/18 06:44 Sodium 139 Potassium 3.7 Chloride 107 Carbon Dioxide 30 BUN 14 Creatinine 0.47 L Glucose 87 Calcium 9.4 _ (1) Pneumonia Aspiration pneumonia type: Laterality: unspecified laterality Lung location : unspecified part of lung Pneumonia type: due to unspecified organism Qualified Code(s): J18.9 - Pneumonia, unspecified organism
[2018-04-10] MEDS: GUAIFENESIN/CODEINE 100MG/10MG 5ML UDC PO PRN ×2 (14:40→20:51)
[2018-04-10] MEDS: ENOXAPARIN INJ 30 MG/0.3 ML SYR SQ SCH (21:18)
[2018-04-11] MEDS: LEVALBUTEROL HCL 0.63 MG/3 ML NEB NEB SCH ×2 (02:00→07:35)
[2018-04-11] MEDS: IPRATROPIUM BROMIDE NEB SOLN 0.02% 2.5 ML VIAL INH SCH ×2 (02:00→07:35)
[2018-04-11 07:08] LABS: Hematocrit (blood only) 35.7 % (37-47); Hemoglobin 11.3 g/dL (12.0-16.0); Mean Corpuscular Hgb Conc 31.7 g/dL (32-36); Mean Corpuscular Volume 101.4 fL (80-100); Mean Platelet Volume 9.3 fL (7.4-10.4); Platelet Count 525 K/uL (130-400); RDW Coefficient of Variation 13.9 % (11.5-14.5); RDW Standard Deviation 51.8 fL (36.4-46.3); Red Blood Count 3.52 M/uL (4.2-5.4); White Blood Count 9.81 K/uL (4.8-10.8)
[2018-04-11 07:40] LABS: BUN Creatinine Ratio 28.6 (10-20); Calcium 9.5 mg/dl (8.5-10.1); Creatinine Clr Calc Pharmacy 66.6 ml/min; Est GFR (African American) 110.4; Est GFR (Non-African American) 95.3
[2018-04-11] MEDS: cefTRIAXone SODIUM 1,000 MG in DEXTROSE 5% 50 ML IV SCH (08:10)
[2018-04-11] MEDS: ASPIRIN 81 MG ECTAB PO SCH (08:12)
[2018-04-11] MEDS: NICOTINE 14 MG/24 HR PATCH TD SCH (08:12)
[2018-04-11] MEDS ORDERED: predniSONE 10 MG TABLET PO SCH (09:00)
[2018-04-11] MEDS: DOXYCYCLINE HYCLATE 100 MG in DEXTROSE 5% 100 ML IV SCH (09:11)
--- NOTE | 2018-04-11 12:55 | Hospitalist Progress Note ---
Date of Service April 11, 2018 Assessment & Plan (1) Pneumonia: (2) COPD exacerbation: Sepsis Pneumonia-community acquired Mild COPD exacerbation Dehydration --CXR:Thoracolumbar scoliosis. Emphysematous change. Pulmonary vascular congestion with a potential superimposed left basilar infiltrate. 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 DVT Px: lovenox SQ Code Status: DNR Disposition Follows with Julia Ruiz PA-C [facility] for routine care Subjective Patient is seen and examined at bedside Patient states her cough and dyspnea have much improved No new complaints Denies chest pain, dizziness, abd pain Physical Exam 2 Vital Signs (Past 24 Hours): Last Vital Signs Temp 36.6 C 04/11/18 07:18 Pulse 66 04/11/18 07:37 Resp 16 04/11/18 07:37 BP 148/75 H 04/11/18 07:18 Pulse Ox 90 04/11/18 07:37 Physical Exam: Physical Exam: Vitals signs as noted above General Appearance:Thin, no apparent distress Head: normocephalic, Atraumatic Eyes: normal inspection, EOMI Neck: supple, Trachea midline Respiratory/Chest: Decreased breath sounds, CTA Cardiovascular: S1, S2, No murmur Abdomen/GI:Soft, Non tender, Bowel sounds present Extremities/Musculoskelatal:normal inspection, no edema Neurologic/Psych:AAOX3, grossly no focal neurological deficits Skin: normal color, warm Results & Data Laboratory Results Short CBC 04/11/18 Range/Units 06:45 WBC 9.81 (4.8-10.8) K/uL Hgb 11.3 L (12.0-16.0) g/dL Hct 35.7 L (37-47) % Plt Count 525 H (130-400) K/uL BMP 04/11/18 06:45 Sodium 139 Potassium 4.0 Chloride 105 Carbon Dioxide 32 BUN 14 Creatinine 0.48 L Glucose 82 Calcium 9.5 _ (1) Pneumonia Aspiration pneumonia type: Laterality: unspecified laterality Lung location : unspecified part of lung Pneumonia type: due to unspecified organism Qualified Code(s): J18.9 - Pneumonia, unspecified organism
--- NOTE | 2018-04-11 13:14 | Discharge Summary ---
Date of Service April 11, 2018 Admission HPI Per Admitting Provider Pt is 77 y/o F with PMH tobacco abuse presented to ER with c/o green productive cough x 1 week. States having SOB and chest tightness past couple of days. Has been having tactile fever, hasn't taken temperature and has decreased appetite with decreased oral intake past couple of days. Pt reports went to walk in clinic today at [facility] and reported O2 sat at 90% and was given albuterol treatment and referred to ER. Denies influenza vaccine this season. Denies ill contacts or recent antibiotic use. Reports hx pneumonia last winter that did not require hospitalization. She denies any known medical problems. Denies fever/chills, diaphoresis, N/V/D/C, YOUNG, dizziness, syncope, vision changes, neck pain, CP, orthopnea, palpitations, hemoptysis, sore throat , choking, otalgia, abdominal pain, paresthesias, extremity weakness, extremity edema, rashes, urinary symptoms. Denies hx MRSA, or recent hospitalizations. Admission Exam Per Admitting Provider General: thin, mild respirtory distress Head: normocephalic, atraumatic Eyes: conjunctiva non-injected, anicteric ENT: normal inspection external ears, nose, mucous membranes dry Neck: supple, trachea midline, non-tender Lungs: R:28 without retractions, speaks sentence, 92% on RA, diminished throughout CV: RRR, no murmur, no pretibial edema Abd: normal BS, soft, non-tender Ext: no cyanosis, no calf tenderness Neuro: A&O x 3, no focal deficits noted, normal affect Skin: warm, dry Principal Diagnosis Discharge Information Discharge Diagnosis Pneumonia COPD Exacerbation Tobacco use disorder Discharge Goals Decrease discomfort,Improve disease control, Improve function Discharge Activity Limitations Resume your previous activity Discharge Data Allergies Allergy/AdvReac Type Severity Reaction Status Date / Time No Known Allergies Allergy Unverified 04/08/18 11:57 Consultations 04/08/18 13:24 ED Decision to Admit Stat Procedures Performed CXR: 1. Thoracolumbar scoliosis. 2. Emphysematous change. 3. Pulmonary vascular congestion with a potential superimposed left basilar infiltrate. Hospital Course (1) Pneumonia: (2) COPD exacerbation: Sepsis Pneumonia-community acquired Mild COPD exacerbation Dehydration --CXR:Thoracolumbar scoliosis. Emphysematous change. Pulmonary vascular congestion with a potential superimposed left basilar infiltrate. --Received IV fluids Blood Culture: No growth to date MRSA swab: Negative Flu Screen; Negative Continue Rocephin, doxycycline Day #4 Continue nebs, Solu Medrol>>Transition to prednisone Needs PFTS as outpatient (3) Hypokalemia: Resolved Monitor electrolytes (4) Tobacco abuse: smoking cessation advised nicotine patch Moderate Protein-calorie malnutrition Cachexia BMI:16.5 Deoiling Machine Operator consulted DVT Px: lovenox SQ Code Status: DNR Disposition Follows with Julia Ruiz PA-C [facility] for routine care Total Time Total Time Spent Total Time Spent (In Minutes): 38 minutes Total Time Includes: Examination of the Patient, Discharge Planning, Medication Reconciliation and Other Discharge Plan Discharge Items Patient Disposition: Home - Self-Care Reason For Visit: PNEUMONIA,SOB Discharge Diagnosis: Pneumonia COPD Exacerbation Tobacco use disorder Discharge Goals: Decrease discomfort, Improve disease control and Improve function Activity: Resume your previous activity Exercise/Sports: Gradually increase as tolerated Non-emergency contact: Primary Care Provider and Honest [employer] Member Call non-emergency contact if: you have any medication questions, your symptoms worsen, your pain is not controlled, your pain is worsening, your pain is unusual for you, your pain is concerning for you and you have a fever Diet: Heart Healthy Addtl Provider Instructions: Follows up with Julia Ruiz PA-C [facility] for routine care in 1 week Follow up with your Pulmnologist in 2 weeks as advised Get Pulmonary function tests as outpatient as advised Complete the antibiotic and Prednisone course as prescribed Seek immediate medical attention if your symptoms reoccur or worsen Quit Smoking as advised Prednisone Course Start taking Prednisone 30mg for 3 days, then 20mg for 3 days, then 10mg 3 days and STOP Prescriptions: New fluticasone-salmeterol [Advair Diskus] 100-50 mcg/dose Blister With Device 1 puff Inhalation BID 30 Days Qty: 1 RF: 1 doxycycline hyclate 100 mg capsule 100 mg PO BID 5 Days Qty: 10 RF: 0 cefdinir 300 mg capsule 300 mg PO BID 5 Days Qty: 10 RF: 0 albuterol sulfate [Ventolin HFA] 90 mcg/actuation HFA aerosol inhaler 2 inha INH Q6H PRN (Reason: shortness of breath or wheezing) Qty: 1 RF: 1 prednisone 10 mg tablet 10 mg PO UD Qty: 18 RF: 0 nicotine 21 mg/24 hr patch 24 hour 1 patch TD DAILY Qty: 30 RF: 0 Continue aspirin 81 mg Tablet,Delayed Release (Dr/Ec) 81 mg PO DAILY RF: 0 Stand-Alone Forms: [facility] Discharge Orders: Discharge Order (Routine); Ordered 04/11/18 Ordered By: Lm Munoz Admission Data Admit Date/Time: 04/08/18 14:10 Attending Provider: Lm Munoz Admit Provider: Sumit Lynch Primary Care Provider: Julia Ruiz Other Providers: Sumit Lynch Service: Telemetry Other Interventions: Discharge Summary Assessment (RN) Last Done: 04/11/18 13:18 DC Date/Time DO NOT enter until pt leaves facility: 04/11/18 13:37
[2018-04-11] MEDS ORDERED: FLUTICASONE/SALMETEROL 100/50 (ADVAIR) 14 PUFF/1 INHALER INH SCH (21:00)
== END 2018-04-11 13:37 | disposition home or self-care (01) | DRG 871 ==
LOC: ED 11:22 → 2N 14:10

== ENCOUNTER 2020-10-22 20:14 | Inpatient (IN) ==
[~2020-10-22 20:14] MED LIST: MIDAZOLAM HCL 1 MG/ML 2ML VIAL IV ONE
[2020-10-22] MEDS ORDERED: SODIUM CHLORIDE 0.9% 500 ML IV SCH (20:30)
--- NOTE | 2020-10-22 20:41 | XRay Report ---
SINGLE VIEW CHEST CLINICAL HISTORY: Respiratory failure. Intubation. FINDINGS: An AP, portable, supine chest radiograph is compared to study dated 04/08/2018. An endotrach eal tube has been placed. The tip projects 2.7 cm above the denzel. The cardiomediastinal silhouette is unremarkable noting atherosclerotic calcification of the thoracic aorta. Chronic interstitial thic kening is similar to previous. No airspace consolidation or large pleural effusion is identified. No pneumothorax is seen. The skeletal structures are osteopenic. The bony thorax is grossly intact. Dege nerative change and scoliosis is noted in the thoracolumbar spine. IMPRESSION: 1. An endotracheal tube has been placed as above. 2. No airspace consolidation or large pleural effusion is identified. ACT 112: Negative or not required by law. Electronically signed by: Kj Poe M.D. 10/22/2020 8:40 PM
[2020-10-22] MEDS ORDERED: MIDAZOLAM HCL 1 MG/ML 2ML VIAL ONE (20:45)
[2020-10-22] MEDS ORDERED: fentaNYL citrate 100 MCG/2 ML VIAL ONE (20:45)
[2020-10-22] MEDS ORDERED: niCARdipine HCL INJ 2.5 MG/ML 10 ML AMP ONE (20:45)
[2020-10-22] MEDS ORDERED: HEPARIN (PORCINE) 1000 UNIT/ML 10 ML (CATH LAB USE ONLY) ONE (20:47)
[2020-10-22 20:59] LABS: Basophils # (auto) 0.04 K/uL (0-0.2); Basophils % (auto) 0.3 %; Eosinophils # (auto) 0.33 K/uL (0-0.5); Eosinophils % (auto) 2.2 %; Hematocrit (blood only) 42.1 % (37-47); Hemoglobin 13.5 g/dL (12.0-16.0); Immature Granulocytes # (auto) 0.09 K/uL (0.00-0.02); Immature Granulocytes % (auto) 0.6 %; Lymphocytes # (auto) 2.13 K/uL (1.2-3.4); Lymphocytes % (auto) 14.4 %; Mean Corpuscular Hemoglobin 33.9 pg (25-34); Mean Corpuscular Hgb Conc 32.1 g/dL (32-36); Mean Corpuscular Volume 105.8 fL (80-100); Monocytes # (auto) 0.77 K/uL (0.11-0.59); Monocytes % (auto) 5.2 %; Neutrophils # (auto) 11.43 K/uL (1.4-6.5); Neutrophils % (auto) 77.3 %; Platelet Count 305 K/uL (130-400); RDW Coefficient of Variation 13.8 % (11.5-14.5); Red Blood Count 3.98 M/uL (4.2-5.4); White Blood Count 14.79 K/uL (4.8-10.8)
--- NOTE | 2020-10-22 21:00 | Emergency Department Note ---
Impression & Plan Cardiac arrest, Respiratory failure ED Provider Note Provider: Maurizio Juarez MD DATE OF SERVICE: 10/22/2020 CHIEF COMPLAINT: Cardiac arrest HISTORY OF PRESENT ILLNESS: Patient is a 80-year-old female history of COPD presenting here today via ambulance from home after collapsing at home. Was with family and suddenly slumped over according to the daughter. Patient became unresponsive and did not seem to have a pulse. EMS/9 1 was called and family later down and alerted neighbor who is a nurse and CPR was fairly immediately started. This lasted a minute or 2 and then the patient seemed to start to have some agonal breathing. EMS arrived within approximately 5 minutes of nonone marilyn l and patient had a pulse at that time. Patient had an episode of V. fib/V. tach with at least 3 shocks delivered and received a dose of 1 mg epinephrine as well as 100 mg of lidocaine and had ROSC. Patient was intubated with a 702 prior to arrival by EMS. Patient was noted to have concerning ST segment changes prior to arrival but did have no further episodes of ectopy and fairly reasonable blood pressure. Patient upon arrival minimally responsive to pain but otherwise has no purposeful movement is intubated. She is unable to write significant history. Daughter later arrived states the patient has otherwise been well recently. REVIEW OF SYSTEMS: Limited secondary to her mental status and critical status PAST MEDICAL HISTORY: As noted above MEDICATIONS:Limited secondary to her mental status and critical status. FMH:Limited secondary to her mental status and critical status SOCIAL HISTORY:Limited secondary to her mental status and critical status. Smoker PHYSICAL EXAM: GENERAL: Patient intubated with case monitor pads in place on [place] Head: Atraumatic. Patient is intubated. EYES: No injection, discharge or icterus. Pupils 4 mm and fixed NECK: Trachea midline. Supple. ENT: Mucous membranes pink and moist 7.0 ET tube present with tube estrada. LUNGS: Airway patent. No retractions. Breath sounds coarse with bilateral breath sounds HEART: Regular rate and rhythm. No chest wall tenderness ABDOMEN: Soft and non-tender, without guarding or rebound. SKIN: Acyanotic, warm, dry, without rashes EXTREMITIES: Without swelling, tenderness or deformity NEUROLOGICAL: Withdraws to significant painful stimuli in all 4 extremities. No other purposeful movements were noted. EK bpm normal sinus rhythm without PVC or PAC. Large anterior lateral ST segment elevation CO noted. CONTINUOUS CARDIAC MONITORING: was ordered and showed a heart rate of 70s to 80s bpm in normal sinus rhythm without significant ectopy Patient's laboratory studies and imaging reviewed. Differential includes Cardiac ischemia, aortic dissection, pulmonary embolism, electrolyte abnormality, acidosis, tension pneumothorax, hypothermia, hypovolemia, intracranial event, cardiac tamponade, as well as other pathologies. IMPRESSION/MEDICAL DECISION MAKING: Patient cardiac arrest in the field very brief downtime with ROSC and then episode of V. fib V. tach with ROSC. Called by EMS prior to arrival. Made code [place] prior to arrival. Patient EKG upon arrival with evidence of ST segment elevation. Question of this was the cause of her initial cardiac arrest today. Heart alert called. Dr. Glez aware. Discussed with family members patient condition upon their arrival. Patient not requiring significant pressure support here but did have a little bit of movement given 2 mg of Versed for bit of sedation. Patient not hypoxic. Chest x-ray obtained and tube placement see ms satisfactory. Not requiring significant ventilator support such as O2 or peep. No evidence of significant trauma. Some difficulty obtaining IV access and blood draws. Dr. Glez had discussion with family members who after discussion together elected to proceed with full care and patient was taken to cardiac Rn Wound for possible coronary blockage. ICU PAROLE SUPERVISOR was present with the patient as well and will dissipate her after the Rn Wound in the ICU. Blood work shows evidence of elevated lactate and troponin consistent with a post cardiac arrest state. Leukocytosis likely reactive. No evidence of significant anemia or severe electrolyte abnormality otherwise besides the acidosis. X-ray shows ET tube placement without evidence of pneumothorax or obvious pneumonia. Patient to Rn Wound with cardiology DIAGNOSIS: Cardiac arrest DISPOSITION: Taken to the cardiac catheterization lab Critical Care I have personally spent 36 minutes of critical care time in the direct management of this patient. This includes bedside care, interpretation of diagnostic studies, and testing, discussion with consultants, patient, and family members, and other required patient management activities. These 36 minutes is in excess of all separately billable procedures. Past Med/Surg History Medical History (Updated 10/22/20 @ 21:23 by Uriah Glez MD) Smoker Tobacco abuse Surgical History (Updated 04/08/18 @ 14:19 by Linnea Carballo PA-C) History of appendectomy History of cervical spinal surgery Family History (Updated 04/08/18 @ 14:19 by Linnea Carballo PA-C) Other Coronary heart disease Stroke Social History (Updated 04/08/18 @ 14:21 by Linnea Carballo PA-C) Smoking Status: Current every day smoker Tobacco Type: Cigarettes Cigarettes Per Day: approx 1ppd x 56 years; Hx Alcohol Use: Yes Alcohol type: beer Hx Substance Use: No Preferred Language: Mongolian Communication Ability: Effective Beliefs That Will Affect Care: None Current Living Situation: Family Current Living Situation Comment: LIVES WITH DAUGHTER Feels Safe at Home: Yes Assistive Devices: Glasses Allergies Allergies Allergy/AdvReac Type Severity Reaction Status Date / Time No Known Allergies Allergy Unverified 10/22/20 20:54 Home Meds Home Medications Medication Instructions Recorded Confirmed No Known Home Medications 10/22/20 10/22/20 Results & Data (ED) Vital Signs Vital Signs - 24 hr 10/22/20 20:14 10/22/20 20:19 10/22/20 20:20 Temperature 35.7 C L Temperature Source Oral Pulse Rate 77 Pulse Rate from SpO2 Sensor Pulse Rhythm Regular Pulse Strength Normal Respiratory Rate 20 20 Respiratory Effort / Characteristics Non-Labored Respiratory Depth Normal Respiratory Pattern Regular Blood Pressure 114/77 Blood Pressure Mean 89 Pulse Oximetry 100 Oxygen Delivery Method Mechanical Vent Mechanical Vent Fraction of Inspired Oxygen 100 Sepsis Recent Fever Within 48 Hours No Sepsis New/Unexplained Change in Mental Status N/A Sepsis Action Taken by Nursing No Action Required 10/22/20 20:35 10/22/20 20:46 Temperature Temperature Source Pulse Rate 88 75 Pulse Rate from SpO2 Sensor 78 Pulse Rhythm Pulse Strength Respiratory Rate 28 H 19 Respiratory Effort / Characteristics Respiratory Depth Respiratory Pattern Blood Pressure 132/70 92/60 L Blood Pressure Mean 90 70 Pulse Oximetry 93 95 Oxygen Delivery Method Mechanical Vent Mechanical Vent Fraction of Inspired Oxygen 100 100 Sepsis Recent Fever Within 48 Hours Sepsis New/Unexplained Change in Mental Status Sepsis Action Taken by Nursing Laboratory Data Result diagrams: 10/22/20 20:49 10/22/20 20:49 Lab Results 10/22/20 10/22/20 10/22/20 Range/Units 20:35 20:45 20:47 WBC (4.8-10.8) K/uL RBC (4.2-5.4) M/uL Hgb (12.0-16.0) g/dL POC Hgb 16.0 (12.0-16.0) g/dl Hct (37-47) % POC Hct 47 (37-47) % MCV (80-100) fL MCH (25-34) pg MCHC (32-36) g/dL RDW Std Deviation (36.4-46.3) fL RDW Coeff of Alex (11.5-14.5) % Plt Count (130-400) K/uL MPV (7.4-10.4) fL Immature Gran % (Auto) % Neut % (Auto) % Lymph % (Auto) % [place] % (Auto) % Eos % (Auto) % Baso % (Auto) % Neut # (Auto) (1.4-6.5) K/uL Lymph # (Auto) (1.2-3.4) K/uL [place] # (Auto) (0.11-0.59) K/uL Eos # (Auto) (0-0.5) K/uL Baso # (Auto) (0-0.2) K/uL Immature Gran # (Auto) (0.00-0.02) K/uL PT (9.0-12.0) Seconds INR (0.9-1.1) APTT (21.0-31.0) Seconds PTT Ratio POC Sodium 141 (135-144) mmol/L Sodium (136-145) mmol/L POC Potassium 3.5 (3.3-5.0) mmol/L Potassium (3.5-5.1) mmol/L POC Chloride 104 (101-112) mmol/L Chloride (98-107) mmol/L Carbon Dioxide (21-32) mmol/L POC Total CO2 21 L (24-31) mmol/L Anion Gap (3-11) POC Anion Gap 22.0 (16-25) mmol/L POC BUN 15 (7-18) mg/dl BUN (7-18) mg/dl Creatinine (0.6-1.2) mg/dl POC Creatinine 0.8 (0.6-1.3) mg/dl Est Cr Clr Drug Dosing ml/min Est GFR ( Amer) ml/min Est GFR (Non-Af Amer) ml/min BUN/Creatinine Ratio (10-20) Glucose (70-99) mg/dl POC Glucose 151 H (70-99) mg/dl POC Glucose (other) 159 H (70-99) mg/dl Calcium (8.5-10.1) mg/dl POC Ioniz Calcium Ramo 1.21 (1.12-1.32) mmol/l Magnesium (1.8-2.4) mg/dl Total Bilirubin (0.2-1) mg/dl AST (15-37) U/L ALT (12-78) U/L Alkaline Phosphatase (45-117) U/L Total Creatine Kinase (26-192) U/L CK-MB (CK-2) (0.5-3.6) ng/ml CK/CKMB % Calc (0-3.0) Troponin I (0-0.045) ng/ml Total Protein (6.4-8.2) gm/dl Albumin (3.4-5.0) gm/dl Globulin (2.5-4.0) gm/dl Albumin/Globulin Ratio (0.9-2) Lipase (73-393) U/L TSH (0.300-4.500) uIu/ml Urine Color Urine Appearance (Clear) Urine pH (4.5-7.5) Ur Specific [place] (1.000-1.030) Urine Protein (Negative) Urine Glucose (UA) (Negative) Urine Ketones (Negative) Urine Blood (Negative) Urine Nitrite (Negative) Urine Bilirubin (Negative) Urine Urobilinogen (Negative) Ur Leukocyte Esterase (Negative) Urine WBC (Auto) (0-5) /hpf Urine RBC (Auto) (0-4) /hpf U Hyaline Cast (Auto) (0-5) /lpf U Epithel Cells (Auto) (0-5) /lpf Urine Bacteria (Auto) (Negative) Ur Renal Epithelial Cell Urine Yeast COVID-19 Eval Order Covid19 at [facility] 10/22/20 10/22/20 10/22/20 Range/Units 20:49 20:49 20:49 WBC 14.79 H (4.8-10.8) K/uL RBC 3.98 L (4.2-5.4) M/uL Hgb 13.5 (12.0-16.0) g/dL POC Hgb (12.0-16.0) g/dl Hct 42.1 (37-47) % POC Hct (37-47) % MCV 105.8 H (80-100) fL MCH 33.9 (25-34) pg MCHC 32.1 (32-36) g/dL RDW Std Deviation 54.0 H (36.4-46.3) fL RDW Coeff of Alex 13.8 (11.5-14.5) % Plt Count 305 (130-400) K/uL MPV 10.0 (7.4-10.4) fL Immature Gran % (Auto) 0.6 % Neut % (Auto) 77.3 % Lymph % (Auto) 14.4 % [place] % (Auto) 5.2 % Eos % (Auto) 2.2 % Baso % (Auto) 0.3 % Neut # (Auto) 11.43 H (1.4-6.5) K/uL Lymph # (Auto) 2.13 (1.2-3.4) K/uL [place] # (Auto) 0.77 H (0.11-0.59) K/uL Eos # (Auto) 0.33 (0-0.5) K/uL Baso # (Auto) 0.04 (0-0.2) K/uL Immature Gran # (Auto) 0.09 H (0.00-0.02) K/uL PT 10.6 (9.0-12.0) Seconds INR 1.0 (0.9-1.1) APTT 25.9 (21.0-31.0) Seconds PTT Ratio 1.0 POC Sodium (135-144) mmol/L Sodium 142 (136-145) mmol/L POC Potassium (3.3-5.0) mmol/L Potassium 3.0 L (3.5-5.1) mmol/L POC Chloride (101-112) mmol/L Chloride 110 H (98-107) mmol/L Carbon Dioxide 19 L (21-32) mmol/L POC Total CO2 (24-31) mmol/L Anion Gap 13.0 H (3-11) POC Anion Gap (16-25) mmol/L POC BUN (7-18) mg/dl BUN 15 (7-18) mg/dl Creatinine 0.82 (0.6-1.2) mg/dl POC Creatinine (0.6-1.3) mg/dl Est Cr Clr Drug Dosing 39.7 ml/min Est GFR ( Amer) 78.9 ml/min Est GFR (Non-Af Amer) 68.1 ml/min BUN/Creatinine Ratio 17.6 (10-20) Glucose 173 H (70-99) mg/dl POC Glucose (70-99) mg/dl POC Glucose (other) (70-99) mg/dl Calcium 7.7 L (8.5-10.1) mg/dl POC Ioniz Calcium Ramo (1.12-1.32) mmol/l Magnesium 2.2 (1.8-2.4) mg/dl Total Bilirubin 0.1 L (0.2-1) mg/dl AST 150 H (15-37) U/L ALT 64 (12-78) U/L Alkaline Phosphatase 83 (45-117) U/L Total Creatine Kinase 217 H (26-192) U/L CK-MB (CK-2) 9.3 H (0.5-3.6) ng/ml CK/CKMB % Calc 4.3 H (0-3.0) Troponin I 0.377 H* (0-0.045) ng/ml Total Protein 5.8 L (6.4-8.2) gm/dl Albumin 2.9 L (3.4-5.0) gm/dl Globulin 2.9 (2.5-4.0) gm/dl Albumin/Globulin Ratio 1.0 (0.9-2) Lipase 184 (73-393) U/L TSH 9.640 H (0.300-4.500) uIu/ml Urine Color Urine Appearance (Clear) Urine pH (4.5-7.5) Ur Specific [place] (1.000-1.030) Urine Protein (Negative) Urine Glucose (UA) (Negative) Urine Ketones (Negative) Urine Blood (Negative) Urine Nitrite (Negative) Urine Bilirubin (Negative) Urine Urobilinogen (Negative) Ur Leukocyte Esterase (Negative) Urine WBC (Auto) (0-5) /hpf Urine RBC (Auto) (0-4) /hpf U Hyaline Cast (Auto) (0-5) /lpf U Epithel Cells (Auto) (0-5) /lpf Urine Bacteria (Auto) (Negative) Ur Renal Epithelial Cell Urine Yeast COVID-19 Eval Order 10/22/20 Range/Units 20:49 WBC (4.8-10.8) K/uL RBC (4.2-5.4) M/uL Hgb (12.0-16.0) g/dL POC Hgb (12.0-16.0) g/dl Hct (37-47) % POC Hct (37-47) % MCV (80-100) fL MCH (25-34) pg MCHC (32-36) g/dL RDW Std Deviation (36.4-46.3) fL RDW Coeff of Alex (11.5-14.5) % Plt Count (130-400) K/uL MPV (7.4-10.4) fL Immature Gran % (Auto) % Neut % (Auto) % Lymph % (Auto) % [place] % (Auto) % Eos % (Auto) % Baso % (Auto) % Neut # (Auto) (1.4-6.5) K/uL Lymph # (Auto) (1.2-3.4) K/uL [place] # (Auto) (0.11-0.59) K/uL Eos # (Auto) (0-0.5) K/uL Baso # (Auto) (0-0.2) K/uL Immature Gran # (Auto) (0.00-0.02) K/uL PT (9.0-12.0) Seconds INR (0.9-1.1) APTT (21.0-31.0) Seconds PTT Ratio POC Sodium (135-144) mmol/L Sodium (136-145) mmol/L POC Potassium (3.3-5.0) mmol/L Potassium (3.5-5.1) mmol/L POC Chloride (101-112) mmol/L Chloride (98-107) mmol/L Carbon Dioxide (21-32) mmol/L POC Total CO2 (24-31) mmol/L Anion Gap (3-11) POC Anion Gap (16-25) mmol/L POC BUN (7-18) mg/dl BUN (7-18) mg/dl Creatinine (0.6-1.2) mg/dl POC Creatinine (0.6-1.3) mg/dl Est Cr Clr Drug Dosing ml/min Est GFR ( Amer) ml/min Est GFR (Non-Af Amer) ml/min BUN/Creatinine Ratio (10-20) Glucose (70-99) mg/dl POC Glucose (70-99) mg/dl POC Glucose (other) (70-99) mg/dl Calcium (8.5-10.1) mg/dl POC Ioniz Calcium Ramo (1.12-1.32) mmol/l Magnesium (1.8-2.4) mg/dl Total Bilirubin (0.2-1) mg/dl AST (15-37) U/L ALT (12-78) U/L Alkaline Phosphatase (45-117) U/L Total Creatine Kinase (26-192) U/L CK-MB (CK-2) (0.5-3.6) ng/ml CK/CKMB % Calc (0-3.0) Troponin I (0-0.045) ng/ml Total Protein (6.4-8.2) gm/dl Albumin (3.4-5.0) gm/dl Globulin (2.5-4.0) gm/dl Albumin/Globulin Ratio (0.9-2) Lipase (73-393) U/L TSH (0.300-4.500) uIu/ml Urine Color Yellow Urine Appearance Clear (Clear) Urine pH 6.5 (4.5-7.5) Ur Specific [place] 1.014 (1.000-1.030) Urine Protein 3+ H (Negative) Urine Glucose (UA) 1+ H (Negative) Urine Ketones Negative (Negative) Urine Blood 2+ H (Negative) Urine Nitrite Negative (Negative) Urine Bilirubin Negative (Negative) Urine Urobilinogen Negative (Negative) Ur Leukocyte Esterase Negative (Negative) Urine WBC (Auto) 10-30 H (0-5) /hpf Urine RBC (Auto) 0-4 (0-4) /hpf U Hyaline Cast (Auto) 1-5 (0-5) /lpf U Epithel Cells (Auto) >30 H (0-5) /lpf Urine Bacteria (Auto) Negative (Negative) Ur Renal Epithelial Cell Not Reportable Urine Yeast Not Reportable COVID-19 Eval Order Imaging Data Radiologist's Impression: Chest X-Ray 10/22/20 20:19 SINGLE VIEW CHEST CLINICAL HISTORY: Respiratory failure. Intubation. FINDINGS: An AP, portable, supine chest radiograph is compared to study dated 04/08/2018. An endotracheal tube has been placed. The tip projects 2.7 cm above the denzel. The cardiomediastinal silhouette is unremarkable noting atherosclerotic calcification of the thoracic aorta. Chronic interstitial thickening is similar to previous. No airspace consolidation or large pleural effusion is identified. No pneumothorax is seen. The skeletal structures are osteopenic. The bony thorax is grossly intact. Degenerative change and scoliosis is noted in the thoracolumbar spine. IMPRESSION: 1. An endotracheal tube has been placed as above. 2. No airspace consolidation or large pleural effusion is identified. ACT 112: Negative or not required by law. Electronically signed by: Kj Poe M.D. 10/22/2020 8:40 PM Discharge Plan Visit Data Chief Complaint: Cardiac Arrest/CPR Stated Complaint: Post Arrest ED Provider: Maurizio Juarez Patient Disposition: Admitted As Inpatient Forms Stand Alone Forms: [facility] Prescriptions Prescriptions: No Action No Known Home Medications RF: 0 Referrals Referrals: Julia Ruiz PA-C [Primary Care Provider] -
[2020-10-22 21:02] LABS: Appearance Urine Clear (Clear); Bacteria Urine Automated Negative (Negative); Bilirubin Urine Negative (Negative); Blood Urine 2+ (Negative); Color Urine Yellow; Epithelial Cell Urine Auto >30 /lpf (0-5); Glucose Urine UA 1+ (Negative); Ketones Urine Negative (Negative); Leukocyte Esterase Urine Negative (Negative); Nitrite Urine Negative (Negative); Protein Urine 3+ (Negative); RBC Urine Automated 0-4 /hpf (0-4); Specific Gravity Urine 1.014 (1.000-1.030); Urobilinogen Urine Negative (Negative); pH Urine 6.5 (4.5-7.5)
[2020-10-22 21:02] LABS: iSTAT Creatinine 0.8 mg/dl (0.6-1.3); iSTAT Ionized Calcium 1.21 mmol/l (1.12-1.32); iSTAT Potassium 3.5 mmol/L (3.3-5.0)
[2020-10-22 21:10] LABS: Partial Thromboplastin Time 25.9 Seconds (21.0-31.0); Prothrombin Time 10.6 Seconds (9.0-12.0)
[2020-10-22 21:16] LABS: Albumin Level 2.9 gm/dl (3.4-5.0); BUN Creatinine Ratio 17.6 (10-20); Calcium 7.7 mg/dl (8.5-10.1); Creatinine Clr Calc Pharmacy 39.7 ml/min; Est GFR (African American) 78.9 ml/min; Est GFR (Non-African American) 68.1 ml/min; Magnesium 2.2 mg/dl (1.8-2.4)
--- NOTE | 2020-10-22 21:25 | Cardiology Consultation ---
Date of Consultation October 22, 2020 Assessment & Plan (1) Cardiac arrest: Presentation concerning for VF/VT arrest precipitated by anterior UT. Discussed situation with patient's family and they wish for everything done at this time. Plan to proceed with coronary angiography and possible PCI. At this point no plans for targeted temperature management. History of Present Illness History of Present Illness Ms. Gomez is a 80-year-old woman with history of COPD, prior tobacco abuse here after out of hospital cardiac arrest. Arrest witnessed by her daughter. Was in her usual state of health prior before slumped down to the ground. A neighbor who is a nurse began CPR only after she lost her pulse right before EMS arrival. With EMS noted to be in VF and received 1 shock before ROSC. On transport had recurrent pulseless VT with 3 additional shocks before ROSC. ECG after ROSC showed significant anterolateral ST elevations which persisted on arrival in ED. On arrival to ED she was intubated, responding to pain, hemodynamically stable off pressors. Allergies Allergy/AdvReac Type Severity Reaction Status Date / Time No Known Allergies Allergy Unverified 10/22/20 20:54 Home Medications Medication Instructions Recorded Confirmed Type No Known Home Medications 10/22/20 10/22/20 History Patient History Medical History (Updated 10/22/20 @ 21:23 by Uriah Glez MD) Smoker Tobacco abuse Surgical History (Updated 04/08/18 @ 14:19 by Linnea Carballo PA-C) History of appendectomy History of cervical spinal surgery Family History (Updated 04/08/18 @ 14:19 by Linnea Carballo PA-C) Other Coronary heart disease Stroke Social History (Updated 04/08/18 @ 14:21 by Linnea Carballo PA-C) Smoking Status: Current every day smoker Tobacco Type: Cigarettes Cigarettes Per Day: approx 1ppd x 56 years; Hx Alcohol Use: Yes Alcohol type: beer Hx Substance Use: No Preferred Language: Greek Communication Ability: Effective Beliefs That Will Affect Care: None Current Living Situation: Family Current Living Situation Comment: LIVES WITH DAUGHTER Feels Safe at Home: Yes Assistive Devices: Glasses Review of Systems Review of Systems: Unobtainable due to endotracheal tube Physical Exam Physical Exam: General: Intubated, responds to pain HEENT: Sclerae anicteric, ETT in place Lungs: Clear anteriorly Cardiac: Regular rate and rhythm, no murmurs. Vascular: 2+ radial Abdomen: Soft Extremities: Well perfused, no peripheral edema Results & Data ([facility]) Vital Signs (Past 12 Hours) Vital Signs Temp Pulse Resp BP Pulse Ox 10/22/20 20:46 75 19 92/60 L 95 10/22/20 20:35 88 28 H 132/70 93 10/22/20 20:20 20 10/22/20 20:14 96.3 F L 77 20 114/77 100 PG Care Time/CCT Total # of Minutes Spent Total Time Spent with Patient: Total time spent is greater than 50% in coordination of care (as documented) at patient's floor/unit and/or counseling patient: Coding Level of Care Code 47943 Initial Inpt Care Lvl 3 Diagnoses Cardiac arrest I46.9
[2020-10-22 21:30] LABS: Bilirubin,Total 0.1 mg/dl (0.2-1); Creatine Kinase MB 9.3 ng/ml (0.5-3.6); Globulin 2.9 gm/dl (2.5-4.0); Thyroid Stimulating Hormone 9.64 uIu/ml (0.300-4.500); Total Protein 5.8 gm/dl (6.4-8.2); Troponin I 0.377 ng/ml (0-0.045)
[2020-10-22] MEDS ORDERED: NOREPINEPHRINE BITARTRATE 1 MG/ML 4 ML VIAL (CATH LAB USE ONLY) ONE (21:36)
[2020-10-22 21:43] LABS: T4 Free Thyroxine 0.82 ng/dl (0.8-1.6)
[2020-10-22] MEDS ORDERED: EPTIFIBATIDE 2 MG/ML 10 ML VIAL (CATH LAB USE ONLY) IV ONE (21:56)
[2020-10-22 22:40] LABS: iSTAT Arterial Blood Gas HCO3 23 meg/L (19-24); iSTAT Arterial Blood Gas pCO2 58 mmHg (35-46); iSTAT Arterial Blood Gas pO2 36 mmHg (80-95); iSTAT Carbon Dioxide 24 mmol/L (24-31)
[2020-10-22 22:40] LABS: iSTAT Arterial Blood Gas HCO3 22 meg/L (19-24); iSTAT Arterial Blood Gas pCO2 55 mmHg (35-46); iSTAT Arterial Blood Gas pH 7.21 (7.35-7.45); iSTAT Arterial Blood Gas pO2 > 420 mmHg (80-95); iSTAT Carbon Dioxide 24 mmol/L (24-31)
[2020-10-22] MEDS ORDERED: ICU PROTOCOL FOR HYPERGLYCEMIA PRN ×2 (22:43→23:17)
--- NOTE | 2020-10-22 22:46 | Critical Care Consultation ---
Date of Consultation October 22, 2020 Assessment & Plan (1) Cardiac arrest: Reason Critically Ill: 80-year-old female presents to the ICU following V. fib cardiac arrest requiring CPR and defibrillation. Noted to have STEMI on EKG and underwent cardiac cath with successful PCI to LAD x2. Currently rest of the ICU mechanically ventilated, hypotensive requiring vasopressor support. Neuro - Anoxic brain injuryprior to this event patient was reportedly in normal state of health, post ROSC she was found to be neurologically unresponsive and required intubation -CT head without acute intracranial process -Patient was considered to be poor candidate for therapeutic hypothermia, however cooling cath was inserted to maintain normothermia around 36 degrees -We will reevaluate neurological status once patient is hemodynamically stable Cardiac - Cardiac arrest/cardiogenic shock/STEMIas described in HPI patient underwent CPR and defibrillation x4 with 1 round of epinephrine and 100 mg lidocaine for V. fib/V. tach arrest -Status post cardiac cath with successful PCI x2 to the LAD -Trend troponins for peak -Follow-up echo in a.m. -ASA, Plavix, statin -Holding beta-shanell and lisinopril for now as patient is currently hypotensive -Hypotension likely secondary to cardiogenic shock -Intermittently required Levophed, titrate for maps greater than 65 -Could consider additional inotropic patient becomes increasingly hypotensive -We will follow the echo in a.m. Respiratory - Mechanically ventilatedpatient unresponsive following cardiac arrest was intubated in field via EMS -Chest x-ray unremarkable without significant pulmonary edema or pleural effusions, or pneumothorax. -Prior history of COPD and reportedly active smoker by daughter, nebs as needed -Vent settings: -Trend ABGs and adjust vent as tolerated -Continuous pulse ox monitor GI - N.p.o. RENAL/LYTES - Creatinine 0.82 Trend BMPs and replete electrolytes as indicated Lactic acidosislactate of 7 following cardiac arrest -Expect to improve, will trend for now and monitor closely. No indication for bicarb drip at this time - Foleystrict I's and O's ENDO - No history of diabetes TSH elevated but T4 within normal limits HEME - H&H stable, monitor routine CBC ID - Notification for infectious process at this time LINES/IV ACCESS - Peripheral IVs, central venous cooling catheter DVT PROPHYLAXIS - SCDs, Lovenox I have personally spent 65 minutes of critical care time in the direct management of this patient. This is a life/limb threatening event. This includes time spent evaluating patient, direct bedside care, chart review, placing orders, interpretation of diagnostic studies, discussion with consultants, patient, and family members, as well as other required patient management activities. This time is exclusive of all separately billable procedures, and teaching time and separate from and in addition to any other critical care service time. Thank you for allowing us to participate in the care of this patient. Please refer to my attending physician's documentation for any further recommendations. (2) Hypoxia: (3) Hypokalemia: (4) STEMI (ST elevation myocardial infarction): (5) Anoxic brain injury: (6) Hypotension: (7) COPD (chronic obstructive pulmonary disease): History of Present Illness Attending Physician: Anthony Glez MD History of Present Illness Patient 80-year-old female with history of COPD, active smoker who presented to the emergency department following cardiac arrest. Patient's daughter was with her at the time of the event and she noticed that the patient became unresponsive. She called over to her neighbor who is an RN and the neighbor started CPR for about 2 minutes until EMS arrived to the scene. EMS reported feeling a faint pulse and placed the patient on cardiac leads in which she converted to V. fib and required CPR and defibrillation and she was intubated at that time. And transport to the hospital she had 3 more episodes of V. tach which converted with defibrillation and had 1 mg epinephrine and 100 mg of lidocaine. Patient was unresponsive following cardiac arrest and was unable to follow commands or show purposeful movement. She was noted to have some movement with noxious stimuli. EKG showed ST elevations in heart alert was initiated. Patient's daughter arrived to the hospital and stated that prior to this event she was in her normal state of health. Patient now arrives to the ICU post cath, mechanically ventilated and requiring Levophed drip as she is now hypotensive. Allergies Allergy/AdvReac Type Severity Reaction Status Date / Time No Known Allergies Allergy Unverified 10/22/20 20:54 Home Medications Medication Instructions Recorded Confirmed Type No Known Home Medications 10/22/20 10/22/20 History Patient History Medical History (Updated 10/22/20 @ 22:51 by DRE Lay) Smoker Tobacco abuse Surgical History (Updated 04/08/18 @ 14:19 by Linnea Carballo PA-C) History of appendectomy History of cervical spinal surgery Family History (Updated 04/08/18 @ 14:19 by Linnea Carballo PA-C) Other Coronary heart disease Stroke Social History (Updated 04/08/18 @ 14:21 by Linnea Carballo PA-C) Smoking Status: Current every day smoker Tobacco Type: Cigarettes Cigarettes Per Day: approx 1ppd x 56 years; Hx Alcohol Use: Yes Alcohol type: beer Hx Substance Use: No Preferred Language: Norwegian Communication Ability: Effective Beliefs That Will Affect Care: None Current Living Situation: Family Current Living Situation Comment: LIVES WITH DAUGHTER Feels Safe at Home: Yes Assistive Devices: Glasses Review of Systems Review of Systems: Unobtainable due to cognitive status and Unobtainable due to endotracheal tube Physical Exam Constitutional: + thin, + frail appearing and + mechanically ventilated Eyes: PERRL, conjunctivae normal, anicteric sclerae ENMT: external ear and nose normal, oropharynx normal Neck: trachea midline, no thyromegaly Respiratory: normal respiratory effort, lungs clear to auscultation Cardiovascular: RRR, no murmur, no edema Heart Sounds: normal S1 and normal S2 Extremities: no edema Gastrointestinal (Abdomen): normal bowel sounds, soft, nontender, no hepatosplenomegaly Musculoskeletal: Extremities: extremities normal to inspection Skin: no rashes, warm and dry Neurologic: Unable to assess due to ET tube/sedation Psychiatric: Unable to assess due to ET tube/sedation Genitourinary: Indwelling Almeida catheter present Results & Data Results & Data ([facility]) Vital Signs (Past 12 Hours) Vital Signs Temp Pulse Resp BP Pulse Ox 10/22/20 20:46 75 19 92/60 L 95 10/22/20 20:35 88 28 H 132/70 93 10/22/20 20:20 20 10/22/20 20:14 35.7 C L 77 20 114/77 100 Coding Level of Care Code Critical Care 1st 30-74 mins Diagnoses Cardiac arrest I46.9 Hypoxia R09.02 Hypokalemia E87.6 STEMI (ST elevation myocardial infarction) I21.3 Anoxic brain injury G93.1 Hypotension I95.9 COPD (chronic obstructive pulmonary disease) J44.9
--- NOTE | 2020-10-22 22:49 | History & Physical Report ---
Date of Service October 22, 2020 Assessment & Plan (1) Cardiac arrest: Plan: Out of hospital event VF/VT status post ROSC Cardiogenic shock secondary to ST elevation UT status post PCI Patient blood pressure improved on Levophed. Anoxic encephalopathy secondary to [id number] cardiac arrest Hypoxemic, hypercapnic respiratory failure secondary to above hx COPD, ongoing tobacco abuse Hypokalemia Hyperglycemia rule out DM ICU Management of cardiac issues as per bag bleacher. Continue Levophed Defer decision regarding therapeutic hypothermia to ICU service. Follow-up ABG Vent management Replace potassium Check hemoglobin A1c DVT prophylaxis. Lovenox subcu GI prophylaxis. Famotidine DNR after discussion with patient's family over the phone upon review of prior DNR directives from last confinement and paperwork found by family at home delineating patient's wishes. Continue current medical management but no CPR in the event of another cardiac arrest. Patient's family requesting updates from providers. Ms. Claribel Reese (daughter), contact #[phone]. Mr. Compa Garcia (son), contact # [phone]. Text document was generated using [employer] voice recognition software. It may contain grammatical or spelling errors. Kindly contact undersigned for clarification of any documentation item in question. History of Present Illness Chief Complaint: Unresponsiveness Cardiac arrest per records Primary Care Provider: Julia Ruiz PA-C History obtained from family and records. Unable to obtain history from patient secondary to intubated state. Medical history significant for COPD, ongoing tobacco abuse. Last confinement 2018 for COPD exacerbation. Patient suddenly became unresponsive at home, suddenly slumped as per daughter. Patient initially noted to have a pulse but later noted to have agonal respiration. CPR started at home by a neighbor who is a nurse. Upon EMS arrival, patient noted to have V. fib/V. tach on rhythm analysis. Subsequent defibrillation done followed by epinephrine administration. ROSC noted with patient responding to pain. Subsequent intubation done by EMS. 3 more episodes of VT on route to the hospital status post defibrillation. Heart alert called at the ER with note of ST elevation on the anterolateral leads. Patient brought to the cardiac laborer cutting tool. Patient found to have 100% acute proximal LAD occlusion. Left and right side filling pressures were noted to be elevated. Subsequent ALBA stent placement. Levophed initiated for cardiogenic shock. Patient currently at the ICU. 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, lives with daughter Allergies Allergy/AdvReac Type Severity Reaction Status Date / Time No Known Allergies Allergy Unverified 10/22/20 20:54 Home Medications Medication Instructions Recorded Confirmed Type No Known Home Medications 10/22/20 10/22/20 History Past Med/Surg History Medical History (Updated 10/22/20 @ 22:51 by DRE Lay) Smoker Tobacco abuse Surgical History (Updated 04/08/18 @ 14:19 by Linnea Carballo PA-C) History of appendectomy History of cervical spinal surgery Family History (Updated 04/08/18 @ 14:19 by Linnea Carballo PA-C) Other Coronary heart disease Stroke Social History (Updated 04/08/18 @ 14:21 by Linnea Carballo PA-C) Smoking Status: Unknown if ever smoked Tobacco Type: Cigarettes Cigarettes Per Day: approx 1ppd x 56 years; Preferred Language: Bulgarian Communication Ability: Effective Beliefs That Will Affect Care: None Current Living Situation: Family Current Living Situation Comment: LIVES WITH DAUGHTER Feels Safe at Home: Yes Assistive Devices: Oxygen - Continuous Review of Systems Review of Systems: Could not be reliably obtained Physical Exam Physical Exam: GENERAL: Intubated, no respiratory distress, underweight SKIN: Normal color, cool HEENT: [place] palpebral conjunctivae, no ptosis, dry buccal mucosa NECK : Supple, no tenderness CHEST : Decreased breath sounds, occasional expiratory wheezes, no tenderness HEART : RRR, no obvious murmurs ABDOMEN: no distention, nontender EXTREMITIES : No LE swelling/tenderness, no other conspicuous deformities noted NEUROLOGIC : Minimally responsive to pain, no facial asymmetry, no other gross focality Results & Data Results & Data ([facility]) Vital Signs (Past 12 Hours) Vital Signs Temp Pulse Resp BP Pulse Ox 10/22/20 20:46 75 19 92/60 L 95 10/22/20 20:35 88 28 H 132/70 93 10/22/20 20:20 20 10/22/20 20:14 35.7 C L 77 20 114/77 100 Laboratory Results Laboratory Results WBC 14.79 K/uL (4.8-10.8) H 10/22/20 20:49 RBC 3.98 M/uL (4.2-5.4) L 10/22/20 20:49 Hgb 13.5 g/dL (12.0-16.0) 10/22/20 20:49 POC Hgb 16.0 g/dl (12.0-16.0) 10/22/20 20:47 Hct 42.1 % (37-47) 10/22/20 20:49 POC Hct 47 % (37-47) 10/22/20 20:47 MCV 105.8 fL (80-100) H 10/22/20 20:49 MCH 33.9 pg (25-34) 10/22/20 20:49 MCHC 32.1 g/dL (32-36) 10/22/20 20:49 RDW Std Deviation 54.0 fL (36.4-46.3) H 10/22/20 20:49 RDW Coeff of Alex 13.8 % (11.5-14.5) 10/22/20 20:49 Plt Count 305 K/uL (130-400) 10/22/20 20:49 MPV 10.0 fL (7.4-10.4) 10/22/20 20:49 Immature Gran % (Auto) 0.6 % 10/22/20 20:49 Neut % (Auto) 77.3 % 10/22/20 20:49 Lymph % (Auto) 14.4 % 10/22/20 20:49 [place] % (Auto) 5.2 % 10/22/20 20:49 Eos % (Auto) 2.2 % 10/22/20 20:49 Baso % (Auto) 0.3 % 10/22/20 20:49 Neut # (Auto) 11.43 K/uL (1.4-6.5) H 10/22/20 20:49 Lymph # (Auto) 2.13 K/uL (1.2-3.4) 10/22/20 20:49 [place] # (Auto) 0.77 K/uL (0.11-0.59) H 10/22/20 20:49 Eos # (Auto) 0.33 K/uL (0-0.5) 10/22/20 20:49 Baso # (Auto) 0.04 K/uL (0-0.2) 10/22/20 20:49 Immature Gran # (Auto) 0.09 K/uL (0.00-0.02) H 10/22/20 20:49 PT 10.6 Seconds (9.0-12.0) 10/22/20 20:49 INR 1.0 (0.9-1.1) 10/22/20 20:49 APTT 25.9 Seconds (21.0-31.0) 10/22/20 20:49 PTT Ratio 1.0 10/22/20 20:49 POC pH 7.20 (7.35-7.45) L 10/22/20 22:17 POC pCO2 58 mmHg (35-46) H 10/22/20 22:17 POC pO2 36 mmHg (80-95) L 10/22/20 22:17 POC HCO3 23 kaleb/L (19-24) 10/22/20 22:17 POC Total CO2 24 mmol/L (24-31) 10/22/20 22:17 POC Base Excess -5.0 kaleb/L (-9-1.8) 10/22/20 22:17 POC ABG O2 Sat 55.0 % (90-95) L 10/22/20 22:17 POC Sodium 141 mmol/L (135-144) 10/22/20 20:47 Sodium 142 mmol/L (136-145) 10/22/20 20:49 POC Potassium 3.5 mmol/L (3.3-5.0) 10/22/20 20:47 Potassium 3.0 mmol/L (3.5-5.1) L 10/22/20 20:49 POC Chloride 104 mmol/L (101-112) 10/22/20 20:47 Chloride 110 mmol/L (98-107) H 10/22/20 20:49 Carbon Dioxide 19 mmol/L (21-32) L 10/22/20 20:49 POC Total CO2 21 mmol/L (24-31) L 10/22/20 20:47 Anion Gap 13.0 (3-11) H 10/22/20 20:49 POC Anion Gap 22.0 mmol/L (16-25) 10/22/20 20:47 POC BUN 15 mg/dl (7-18) 10/22/20 20:47 BUN 15 mg/dl (7-18) 10/22/20 20:49 Creatinine 0.82 mg/dl (0.6-1.2) 10/22/20 20:49 POC Creatinine 0.8 mg/dl (0.6-1.3) 10/22/20 20:47 Est Cr Clr Drug Dosing 39.7 ml/min 10/22/20 20:49 Est GFR ( Amer) 78.9 ml/min 10/22/20 20:49 Est GFR (Non-Af Amer) 68.1 ml/min 10/22/20 20:49 BUN/Creatinine Ratio 17.6 (10-20) 10/22/20 20:49 Glucose 173 mg/dl (70-99) H 10/22/20 20:49 POC Glucose 151 mg/dl (70-99) H 10/22/20 20:35 POC Glucose (other) 159 mg/dl (70-99) H 10/22/20 20:47 Lactate 7.0 mmol/L (0.4-2.0) H* 10/22/20 20:49 Calcium 7.7 mg/dl (8.5-10.1) L 10/22/20 20:49 POC Ioniz Calcium Ramo 1.21 mmol/l (1.12-1.32) 10/22/20 20:47 Magnesium 2.2 mg/dl (1.8-2.4) 10/22/20 20:49 Total Bilirubin 0.1 mg/dl (0.2-1) L 10/22/20 20:49 AST 150 U/L (15-37) H 10/22/20 20:49 ALT 64 U/L (12-78) 10/22/20 20:49 Alkaline Phosphatase 83 U/L (45-117) 10/22/20 20:49 Total Creatine Kinase 217 U/L (26-192) H 10/22/20 20:49 CK-MB (CK-2) 9.3 ng/ml (0.5-3.6) H 10/22/20 20:49 CK/CKMB % Calc 4.3 (0-3.0) H 10/22/20 20:49 Troponin I 0.377 ng/ml (0-0.045) H* 10/22/20 20:49 Total Protein 5.8 gm/dl (6.4-8.2) L 10/22/20 20:49 Albumin 2.9 gm/dl (3.4-5.0) L 10/22/20 20:49 Globulin 2.9 gm/dl (2.5-4.0) 10/22/20 20:49 Albumin/Globulin Ratio 1.0 (0.9-2) 10/22/20 20:49 Lipase 184 U/L (73-393) 10/22/20 20:49 TSH 9.640 uIu/ml (0.300-4.500) H 10/22/20 20:49 Free T4 0.82 ng/dl (0.8-1.6) 10/22/20 20:49 Urine Color Yellow 10/22/20 20:49 Urine Appearance Clear (Clear) 10/22/20 20:49 Urine pH 6.5 (4.5-7.5) 10/22/20 20:49 Ur Specific [place] 1.014 (1.000-1.030) 10/22/20 20:49 Urine Protein 3+ (Negative) H 10/22/20 20:49 Urine Glucose (UA) 1+ (Negative) H 10/22/20 20:49 Urine Ketones Negative (Negative) 10/22/20 20:49 Urine Blood 2+ (Negative) H 10/22/20 20:49 Urine Nitrite Negative (Negative) 10/22/20 20:49 Urine Bilirubin Negative (Negative) 10/22/20 20:49 Urine Urobilinogen Negative (Negative) 10/22/20 20:49 Ur Leukocyte Esterase Negative (Negative) 10/22/20 20:49 Urine WBC (Auto) 10-30 /hpf (0-5) H 10/22/20 20:49 Urine RBC (Auto) 0-4 /hpf (0-4) 10/22/20 20:49 U Hyaline Cast (Auto) 1-5 /lpf (0-5) 10/22/20 20:49 U Epithel Cells (Auto) >30 /lpf (0-5) H 10/22/20 20:49 Urine Bacteria (Auto) Negative (Negative) 10/22/20 20:49 Ur Renal Epithelial Cell Not Reportable 10/22/20 20:49 Urine Yeast Not Reportable 10/22/20 20:49 COVID-19 Eval Order Covid19 at [facility] 10/22/20 20:45 SARS-CoV-2 (PCR) NEGATIVE (Negative) 10/22/20 20:45 Impressions Chest X-Ray 10/22/20 20:19 SINGLE VIEW CHEST CLINICAL HISTORY: Respiratory failure. Intubation. FINDINGS: An AP, portable, supine chest radiograph is compared to study dated 04/08/2018. An endotracheal tube has been placed. The tip projects 2.7 cm above the denzel. The cardiomediastinal silhouette is unremarkable noting atherosclerotic calcification of the thoracic aorta. Chronic interstitial thickening is similar to previous. No airspace consolidation or large pleural effusion is identified. No pneumothorax is seen. The skeletal structures are osteopenic. The bony thorax is grossly intact. Degenerative change and scoliosis is noted in the thoracolumbar spine. IMPRESSION: 1. An endotracheal tube has been placed as above. 2. No airspace consolidation or large pleural effusion is identified. ACT 112: Negative or not required by law. Electronically signed by: Kj Poe M.D. 10/22/2020 8:[address] head initial read: No acute intracranial hemorrhage. No mass-effect or midline shift. No loss of snyder-white matter differentiation to suggest acute large vessel territory infarct. Calcifications in the basal ganglia and dentate nucleus likely senescent. Right maxillary sinus layering. EKG as per my interpretation : Rate 75, NSR, LAD, LAFB, RBBB, ST elevation anterolateral leads, ST depression inferior leads Code Status & VTE Plan VTE Prophylaxis Plan VTE Prophylaxis will be ordered: Yes
[2020-10-22] MEDS ORDERED: STAT IV Infusion **Titration per Protocol STA (22:52)
[2020-10-22] MEDS ORDERED: CLOPIDOGREL BISULFATE 300 MG TAB PO STA (22:54)
--- NOTE | 2020-10-22 22:57 | Post Operative Brief Note ---
Cardiology Brief Post Op Date of Surgery October 22, 2020 Pre & Post Diagnosis Coronary artery disease Procedure Coronary angiography Left heart catheterization Right heart cath Central venous catheter placement PCI to LAD with 2 ALBA Director Of Volunteer Services Anthony Glez MD Chief Inspector Osmani Estimated Blood Loss 10 Findings See Below 100% proximal LAD occlusion. Minimal non-culprit disease Cardiogenic shock PCI to LAD with 2 ALBA (3.0 x18, 3.0 x 15 Kelvin) Anesthesia Type RN Sedation Complications none Disposition Accompanied Patient To Recovery: No Disposition: Surgical ICU Overlapping Procedure I was present for: the critical portions of procedure. I was immediately available: during the entire case. Back up surgeon: was not required during procedure.
[2020-10-22] MEDS ORDERED: NOREPINEPHRINE/D5W 8 MG/508 ML BAG IV SCH (23:00)
[2020-10-22] MEDS ORDERED: ACETAMINOPHEN 65 ML IV PRN (23:17)
[2020-10-22] MEDS ORDERED: LORazepam 0.5 MG/1 ML VIAL IV PRN (23:17)
[2020-10-22] MEDS ORDERED: LACTATED RINGER'S 1,000 ML IV ONE (23:17)
[2020-10-22] MEDS ORDERED: PROMETHAZINE HCL 6.25 MG in SODIUM CHLORIDE 0.9% 50 ML IV PRN (23:17)
[2020-10-22] MEDS ORDERED: fentaNYL citrate 100 MCG/2 ML VIAL IV PRN (23:17)
[2020-10-22] MEDS: POTASSIUM CHLORIDE / WTR 20 MEQ/100 ML PLCT IV SCH (23:46)
--- NOTE | 2020-10-23 | Cardiac Catheterization ---
[facility] Data: Power Project Manager Cardiac Status Clinical evaluation leading to the procedure CAD Presenation: STEMI Anginal Classification: CCS IV Heart Failure: No Cardiogenic Shock within 24 Hours: Yes Cardiac Arrest within 24 Hours: Yes Imaging Studies Past 6 Months: No Stress Studies Past 6 Months: No Diagnostic Physicians Name: Anthony Glez MD Status: Emergency Closure Device Percutaneous Entry Location: Radial Closure Device: Radial Band Recommendations: PCI without planned CABG PCI Indication: Immediate PCI for STEMI First Noted: First EKG Reason For Delay in PCI:: Cardiac Arrest &/or Lesion Segment Name: proximal LAD Culprit Artery: Yes Stenosis Prior to Rx (%): 100 Chronic Total Occlusion: No IVUS: No FFR: No Pre-Procedure MARILEE Flow: 0 Previously Treated Lesion: No Lesion Complexity: Non-High/Non-C Lesion Length (mm): 20 Thrombus Present: Yes Bifurcation Lesion: Yes Guidewire Across Lesion: Stenosis Post-Procedure (%): 0 Post-Procedure MARILEE Flow: 3 Devices(s) Deployed: Yes Yes Intraprocedure Events Significant Disection: No Perforation: No Cardiac Cath Procedure Full Procedure Date October 22, 2020 Pre-Procedure Diagnosis Pre-Procedure Diagnosis: STEMI AUC Score AUC Score: 9 Post-Procedure Diagnosis Post-Procedure Diagnosis: Severe CAD, Successful PCI and Elevated Intracardiac Pressures Procedure(s) Performed Procedure(s) Performed: Coronary Angiography, Left Heart Cath, Right Heart Cath, Drug Eluting Stent and Procedure (Cooling catheter placement) Industrial Maintenance Repairer Helper Anthony Glez MD Litigation Claim Representative(s) Osmani Estimated Blood Loss Estimated Blood Loss: 15 Medication(s) Medication(s): Fentanyl, Heparin, Lidocaine 1%, Nitroglycerin and Versed Summary of Findings Indication: STEMI/Heart Alert Access: 6Fr right radial artery, 6Fr right CFV Catheters: EBU 3.5 guide, diagnostic JR4, 6Fr swan Findings: LM - normal caliber, luminal irregularities LAD - 100% acute proximal LAD occlusion Circumflex - large caliber, 30-40% mid circumflex at take-off of small OM2 with severe osital disease. RCA - dominant, moderate caliber, proximal-mid luminal irregularities. PDA without significant disease. LVEDP - 25 -- PCI -- Antithrombotic therapy: Heparin, Integrilin Procedure: Left main cannulated with EBU 3.5 guide Auto Cleaner 50 wire passed across lesion into distal vessel Proximal LAD lesion predilated with 2.5 compliant balloon When flow re-established found to have a severe stenosis just after take-off of S1/D1. Early-mid LAD stented with 3.0 x 15 mm Kelvin ALBA 2nd ALBA (3.0 x 18 mm [place]) placed from proximal LAD, overlapping proximal aspect of initial stent Stents post-dilated with stent balloon. IC vasodilators administered for spasm Post procedure MARILEE 3 flow, stent well expanded with minimal residual stenosis and no apparent cardiac complications. RHC RA 9 RV 34/6 PA 36/17 (25) PCW 22 PA sat - 55% Ao sat - 92% [place] and 6FR sheath removed from right CFV and exchnaged for femoral cooling catheter placed to RT IVC. Arterial Closure: TR Band Summary: 1. Out of hospital cardiac arrest 2. Anterior STEMI/Acute 100% proximal LAD occlusion 3. Minimal non-culprit coronary artery disease 4. Elevated left and right sided filling pressures 5. Cardiogenic shock 6. Successful PCI of proximal to mid LAD with 2 overlapping drug-eluting stents (3.0 x 18, 3.0 x 15 [place]). Recommendations: Admit to ICU for continued monitoring Continue dual-antiplatelet therapy with ASA/Clopidogrel Trend troponins until peak, Check Echo in AM Continue norepinephrine. Gentle diuresis as able Hemodynamics Rest Ao:: 95/55/70 Final Ao: 114/67/86 LV: 85/25 Recommendations Recommendations: PCI without planned CABG Specimens Specimens: None Radiation Exposure (mGy) 1007 Contrast (mls) 90 Fluids (cc crystalloids) Fluids (cc crystalloids): 100 Drains Drains: none Anesthesia moderate 8499-5536 Procedural Complication(s) None Disposition ICU I attest to the content of the Intraoperative Record and any orders documented therein. Any exceptions are noted below. [employer] Card Cath Procedure Codes Cardiac Catheterization Procedure 1: Cardiovascular Cath Procedures: 09906 Coronaries & LHC (+/-LV) & RHC Therapeutic Services & Ancillary Proc Procedure 1: Cardiovascular Tx and Anc Procedures: 55796 Insertion Central Venous Catheter Moderate Sedation Procedure 1: Sedation/Anesthesia: 51696 Mod Sedation by the same physician;Init15 Min Child Age 5 & Up Procedure 2: Sedation/Anesthesia: 69882 Mod Sedation by the same physician; Ea [id number] Minutes Stenting Procedure 1: Cardiovascular Stent Procedures: 83853 Perc transluminal revascularization of acute sub/total occl, aMI PG Care Time/CCT Total # of Minutes Spent Total Time Spent with Patient: Total time spent is greater than 50% in coordination of care (as documented) at patient's floor/unit and/or counseling patient:
[2020-10-23] MEDS ORDERED: LACTATED RINGER'S 1,000 ML IV SCH ×2 (00:15→01:00)
[2020-10-23] MEDS ORDERED: IPRATROPIUM BROMIDE HFA INHALER INH SCH (01:00)
[2020-10-23] MEDS ORDERED: ALBUTEROL HFA 8 GM INHALER INH SCH (01:00)
[2020-10-23] MEDS ORDERED: fentaNYL citrate 100 MCG/2 ML VIAL IV PRN (01:19)
[2020-10-23] MEDS: POTASSIUM CHLORIDE / WTR 20 MEQ/100 ML PLCT IV SCH ×2 (01:28→03:43)
[2020-10-23] MEDS ORDERED: CLOPIDOGREL BISULFATE 300 MG TAB ONE (01:56)
[2020-10-23 04:17] LABS: iSTAT Allen Test Pass; iSTAT Art Bld Gas pCO2 Correct 42 mmHg (35-46); iSTAT Art Bld Gas pH Corrected 7.334 (7.35-7.45); iSTAT Arterial Blood Gas HCO3 23 meg/L (19-24); iSTAT Arterial Blood Gas pCO2 44 mmHg (35-46); iSTAT Arterial Blood Gas pH 7.32 (7.35-7.45); iSTAT Arterial Blood Gas pO2 163 mmHg (80-95); iSTAT Arterial Blood Gas pO2 C 157; iSTAT Carbon Dioxide 24 mmol/L (24-31); iSTAT FiO2 40 %; iSTAT Hematocrit 37 % (37-47); iSTAT Hemoglobin 12.6 g/dl (12.0-16.0); iSTAT Potassium 4.4 mmol/L (3.3-5.0); iSTAT Site L Radial; iSTAT Sodium 139 mmol/L (135-144)
[2020-10-23] MEDS ORDERED: ALBUT/IPRATROP 3MG/0.5MG NEB 3 ML VIAL NEB PRN (04:48)
[2020-10-23 04:51] LABS: Hematocrit (blood only) 36.1 % (37-47); Hemoglobin 11.6 g/dL (12.0-16.0); Mean Corpuscular Hemoglobin 33.2 pg (25-34); Mean Corpuscular Hgb Conc 32.1 g/dL (32-36); Mean Corpuscular Volume 103.4 fL (80-100); Mean Platelet Volume 9.8 fL (7.4-10.4); Platelet Count 299 K/uL (130-400); RDW Coefficient of Variation 13.8 % (11.5-14.5); Red Blood Count 3.49 M/uL (4.2-5.4); White Blood Count 20.16 K/uL (4.8-10.8)
[2020-10-23 05:12] LABS: Alanine Aminotransferase 166 U/L (12-78); Albumin Level 2.9 gm/dl (3.4-5.0); BUN Creatinine Ratio 17.2 (10-20); Blood Urea Nitrogen 13 mg/dl (7-18); Calcium 7.5 mg/dl (8.5-10.1); Carbon Dioxide 25 mmol/L (21-32); Chloride 112 mmol/L (98-107); Creatinine Clr Calc Pharmacy 53.5 ml/min; Est GFR (African American) 90.8 ml/min; Est GFR (Non-African American) 78.3 ml/min; Glucose 161 mg/dl (70-99); Potassium 4.6 mmol/L (3.5-5.1); Sodium 140 mmol/L (136-145)
[2020-10-23 05:17] LABS: Basophils # (auto) 0.02 K/uL (0-0.2); Basophils % (auto) 0.1 %; Eosinophils # (auto) 0.01 K/uL (0-0.5); Immature Granulocytes # (auto) 0.06 K/uL (0.00-0.02); Immature Granulocytes % (auto) 0.3 %; Lymphocytes % (auto) 6.4 %; Monocytes # (auto) 0.43 K/uL (0.11-0.59); Monocytes % (auto) 2.1 %; Neutrophils # (auto) 18.34 K/uL (1.4-6.5); Neutrophils % (auto) 91.1 %; RBC Morphology Unremarkable
[2020-10-23 05:30] LABS: Albumin Globulin Ratio 1.1 (0.9-2); Alkaline Phosphatase 66 U/L (45-117); Aspartate Aminotransferase 1213 U/L (15-37); Bilirubin,Total 0.5 mg/dl (0.2-1); Chol HDL Ratio 3; Cholesterol 158 mg/dl (0-200); Globulin 2.7 gm/dl (2.5-4.0); HDL Cholesterol 63 mg/dl; LDL Cholesterol Calculated 70 mg/dl; Phosphorus 3.1 mg/dl (2.5-4.9); Total Protein 5.6 gm/dl (6.4-8.2); Triglycerides 123 mg/dl (0-150); Troponin I > 200.000 ng/ml (0-0.045); VLDL Cholesterol 25 mg/dl
[2020-10-23] MEDS ORDERED: CALCIUM GLUCONATE 10% 1,000 MG in SODIUM CHLORIDE 0.9% 50 ML IV ONE (06:00)
--- NOTE | 2020-10-23 06:39 | CT Scan Report ---
CT head/brain wo con CLINICAL HISTORY: 80 years-old Female with AMS. Acutely altered mental status TECHNIQUE: Multiple axial CT images of the head were obtained without contrast. A dose lowering tech nique was utilized adhering to the principles of ALARA. CT DOSE: 537.48 mGy.cm COMPARISON: None. FINDINGS: No acute intracranial hemorrhage, midline shift, intracranial mass, hydrocephalus, territorial ischem ia or abnormal extra-axial collection. Calcifications within the lentiform and dentate nuclei. Age-re lated involutional changes. White matter hypodensities suggestive of chronic microvascular ischemic d isease. The calvarium is intact. Mild mucosal thickening of the ethmoid and right maxillary sinus with small right maxillary air-fluid level suggestive of acute sinusitis. The mastoid air cells are clear. Unre markable soft tissues and orbits. IMPRESSION: No acute intracranial abnormality. ACT 112: Negative or not required by law. The above report was generated using voice recognition software. It may contain grammatical, syntax o r spelling errors. Electronically signed by: Mansoor Vidales M.D. 10/23/2020 6:38 AM
[2020-10-23 06:49] LABS: iSTAT Arterial Blood Gas HCO3 22 meg/L (19-24); iSTAT Arterial Blood Gas pCO2 50 mmHg (35-46); iSTAT Arterial Blood Gas pH 7.25 (7.35-7.45); iSTAT Arterial Blood Gas pO2 284 mmHg (80-95); iSTAT Carbon Dioxide 24 mmol/L (24-31)
[2020-10-23 07:06] LABS: Estimated Average Glucose 105 mg/dl; Hemoglobin A1C 5.3 % (4.5-5.6)
[2020-10-23] MEDS ORDERED: ENOXAPARIN INJ 30 MG/0.3 ML SYR SQ SCH (09:00)
[2020-10-23] MEDS ORDERED: ASPIRIN 81 MG ECTAB PO SCH (09:00)
[2020-10-23] MEDS ORDERED: ENOXAPARIN INJ 40 MG/0.4 ML SYR SQ SCH (09:00)
--- NOTE | 2020-10-23 09:45 | XRay Report ---
KUB CLINICAL HISTORY: Enteric tube placement. FINDINGS: An AP, portable, supine abdominal radiograph is obtained. No prior studies are available fo r comparison at the time of dictation. An enteric tube has been placed. The tip projects below the di aphragm over the upper pelvis. This is likely located within the distal stomach. There is no radiogra phic evidence of bowel obstruction. Excreted IV contrast is seen within the renal collecting systems. The lung bases are clear as visualized. Atherosclerotic calcification is noted in the thoracic aorta . The skeletal structures are osteopenic. There is advanced degenerative change and scoliosis seen in the spine. IMPRESSION: Enteric tube placement as above. Electronically signed by: Kj Poe M.D. 10/23/2020 9:43 AM
[2020-10-23] MEDS: ATORVASTATIN 40 MG TAB PO SCH (10:00)
[2020-10-23] MEDS: FAMOTIDINE 20 MG in SYRINGE 3 ML IV SCH ×2 (10:01→22:39)
[2020-10-23] MEDS: ASPIRIN 81 MG CHEW PO SCH (10:01)
--- NOTE | 2020-10-23 10:13 | Critical Care Progress Note ---
Date of Service October 23, 2020 Assessment & Plan (1) Cardiac arrest: Plan: Reason Critically Ill: 80-year-old female presents to the ICU following V. fib cardiac arrest requiring CPR and defibrillation. Noted to have STEMI on EKG and underwent cardiac cath with successful PCI to LAD x2. Currently rest of the ICU mechanically ventilated, hypotensive requiring vasopressor support. Neuro - Anoxic brain injuryprior to this event patient was reportedly in normal state of health, post ROSC she was found to be neurologically unresponsive and required intubation -CT head without acute intracranial process -Continue to maintain normothermia. Will obtain MRI of the brain and EEG to evaluate for anoxic brain injury seizure activity, respectively Cardiac - Cardiac arrest/cardiogenic shock/STEMIas described in HPI patient underwent CPR and defibrillation x4 with 1 round of epinephrine and 100 mg lidocaine for V. fib/V. tach arrest -Status post cardiac cath with successful PCI x2 to the LAD -Trend troponins for peak -Follow-up echo in a.m. -ASA, Plavix, statin -Holding beta-shanell and lisinopril for now as patient is currently hypotensive -Hypotension likely secondary to cardiogenic shock -Intermittently required Levophed, titrate for maps greater than 65 -We will follow the echo in a.m. Respiratory - Mechanically ventilatedpatient unresponsive following cardiac arrest was intubated in field via EMS -Chest x-ray unremarkable without significant pulmonary edema or pleural effusions, or pneumothorax. -Prior history of COPD and reportedly active smoker by daughter, nebs as needed -Vent settings: -Trend ABGs and adjust vent as tolerated -Continuous pulse ox monitor GI - N.p.o. RENAL/LYTES - Trend BMPs and replete electrolytes as indicated Lactic acidosisimproving - Foleystrict I's and O's ENDO - No history of diabetes TSH elevated but T4 within normal limits HEME - H&H stable, monitor routine CBC ID - Notification for infectious process at this time LINES/IV ACCESS - Peripheral IVs, central venous cooling catheter DVT PROPHYLAXIS - SCDs, Lovenox on hold. Palliative care consulted due to poor prognosis. I have personally spent 30 minutes of critical care time in the direct management of this patient. This is a life/limb threatening event. This includes time spent evaluating patient, direct bedside care, chart review, placing orders, interpretation of diagnostic studies, discussion with consultants, patient, and family members, as well as other required patient management activities. This time is exclusive of all separately billable procedures, and teaching time and separate from and in addition to any other critical care service time. Thank you for allowing us to participate in the care of this patient. Please refer to my attending physician's documentation for any further recommendations. (2) Hypoxia: (3) Hypokalemia: (4) STEMI (ST elevation myocardial infarction): (5) Anoxic brain injury: (6) Hypotension: (7) COPD (chronic obstructive pulmonary disease): Admission and Anticipated Discharge Date Admission Date: October 22, 2020 Subjective Patient seen and examined this morning. Nonresponsive to commands. Unable to obtain review of systems. Off sedation. Review of Systems Review of Systems: Unobtainable due to the patient's mental status Physical Exam Constitutional: + thin, + frail appearing and + mechanically ventilated Eyes: PERRL, conjunctivae normal, anicteric sclerae ENMT: external ear and nose normal, oropharynx normal Neck: trachea midline, no thyromegaly Respiratory: normal respiratory effort, lungs clear to auscultation Cardiovascular: RRR, no murmur, no edema Heart Sounds: normal S1 and normal S2 Extremities: no edema Gastrointestinal (Abdomen): normal bowel sounds, soft, nontender, no hepatosplenomegaly Musculoskeletal: Extremities: extremities normal to inspection Skin: no rashes, warm and dry Neurologic: Unable to assess due to ET tube/sedation Psychiatric: Unable to assess due to ET tube/sedation Genitourinary: Indwelling Almeida catheter present Results & Data Results & Data ([facility]) Vital Signs (Past 12 Hours) Vital Signs Temp Pulse Resp BP Pulse Ox 10/23/20 08:53 97.2 F L 84 126/85 100 10/23/20 08:00 96.8 F L 81 92 10/23/20 07:59 81 28 H 100 10/23/20 07:37 97.2 F L 84 101/66 10/23/20 07:22 96.4 F L 83 107/65 100 10/23/20 07:07 96.4 F L 77 116/79 100 10/23/20 06:37 96.1 F L 91 H 171/99 H 10/23/20 06:23 96.4 F L 85 97/67 L 10/23/20 06:07 97.7 F 83 145/91 H 99 10/23/20 05:52 91 H 134/77 10/23/20 05:37 98.1 F 92 H 144/88 H 99 10/23/20 05:23 98.2 F 87 114/78 100 10/23/20 05:07 98.2 F 84 121/95 98 10/23/20 04:41 80 99/76 L 100 10/23/20 04:37 82 120/85 100 10/23/20 04:22 88 128/77 100 10/23/20 04:07 82 128/69 10/23/20 04:00 92 H 116/81 10/23/20 03:53 98 H 88/57 L 10/23/20 03:44 90 27 H 94 10/23/20 03:37 90 126/77 10/23/20 03:22 85 96/68 L 10/23/20 03:12 87 97/65 L 10/23/20 03:08 88 68/54 L 10/23/20 02:53 90 104/64 100 10/23/20 02:37 96 H 108/62 100 10/23/20 02:23 104 H 91/64 L 100 10/23/20 02:09 96.6 F L 101 H 148/97 H 99 10/23/20 01:52 96.6 F L 82 100/63 99 10/23/20 01:37 97.0 F L 92 H 105/74 99 10/23/20 01:22 97.0 F L 100 H 116/79 99 10/23/20 01:19 96.6 F L 106 H 159/94 H 99 10/23/20 01:09 96.8 F L 118 H 99 10/23/20 00:50 96.8 F L 88 99 10/23/20 00:45 96.8 F L 100 H 10/23/20 00:40 96.8 F L 115 H 10/23/20 00:22 97.0 F L 94 H 122/88 10/23/20 00:17 97.0 F L 89 120/75 10/23/20 00:08 97.0 F L 115 H 195/128 H 100 10/22/20 23:59 96.8 F L 112 H 118/80 100 10/22/20 23:51 96.8 F L 99 H 164/88 H 100 10/22/20 23:37 96.8 F L 97 H 156/109 H 78 L 10/22/20 23:30 96.6 F L 91 H 161/117 H 100 10/22/20 23:22 96.8 F L 85 100 10/22/20 23:17 86 24 100 10/22/20 23:10 96.4 F L 87 141/94 H 100 10/22/20 23:08 96.4 F L 78 10/22/20 23:06 96.4 F L 93 H 25 H 100 10/22/20 23:04 81 10/22/20 23:02 76 Vital signs, labs and imaging personally reviewed Coding Level of Care Code Critical Care 1st 30-74 mins Diagnoses Cardiac arrest I46.9 Hypoxia R09.02 Hypokalemia E87.6 STEMI (ST elevation myocardial infarction) I21.3 Anoxic brain injury G93.1 Hypotension I95.9 COPD (chronic obstructive pulmonary disease) J44.9 Time Spent (min) 30
--- NOTE | 2020-10-23 10:50 | Hospitalist Progress Note ---
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 Continue Levophed Vent management Replace potassium Check hemoglobin A1c DVT prophylaxis. Lovenox subcu GI prophylaxis. Famotidine Per Dr Montenegro, DNR after discussion with patient's family over the phone upon review of prior DNR directives from last confinement and paperwork found by family at home delineating patient's wishes. Continue current medical management but no CPR in the event of another cardiac arrest. Patient's family requesting updates from providers. Ms. Claribel Reese (daughter), contact #[phone]. Mr. Compa Garcia (son), contact # [phone]. Labs Checked, Case D/W CC Team ROS-Offers no history, follows no commands Physical Exam Gen-Mild Distress, Afebrile, Vented Head-NCAT, EOMI, PERRLA, Anicteric Sclera Neck-Supple, No JVD, No Thyromegaly, No Masses, No LAD, No Bruits Lungs-Clear to Auscultation Bilaterally, No Rales, No Rhonchi, No Wheezing, No Crepitus Chest-No S4, +S1, +S2, No S3, No Murmurs, No Rubs, No Gallops, No Ectopy Abdomen-Soft, Bowel Sounds Present, Non Tender, Non Distended, No Hepatomegaly, No Splenomegaly, No Palpable Masses, No Rebound, No Rigidity, No Guarding Musculoskeletal-NA Extremities-No Cyanosis, No Clubbing, No Edema, Ecchymotic RUE Nuero-Cranial Nerves II-XII grossly intact Psych-Agitated Admission and Anticipated Discharge Date Admission Date: October 22, 2020 Results & Data Results & Data ([facility]) Vital Signs (Past 12 Hours) Vital Signs Temp Pulse Resp BP Pulse Ox 10/23/20 10:00 36.1 C L 80 111/68 100 10/23/20 08:53 36.2 C L 84 126/85 100 10/23/20 08:00 36.0 C L 81 92 10/23/20 07:59 81 28 H 100 10/23/20 07:37 36.2 C L 84 101/66 10/23/20 07:22 35.8 C L 83 107/65 100 10/23/20 07:07 35.8 C L 77 116/79 100 10/23/20 06:37 35.6 C L 91 H 171/99 H 10/23/20 06:23 35.8 C L 85 97/67 L 10/23/20 06:07 36.5 C 83 145/91 H 99 10/23/20 05:52 91 H 134/77 10/23/20 05:37 36.7 C 92 H 144/88 H 99 10/23/20 05:23 36.8 C 87 114/78 100 10/23/20 05:07 36.8 C 84 121/95 98 10/23/20 04:41 80 99/76 L 100 10/23/20 04:37 82 120/85 100 10/23/20 04:22 88 128/77 100 10/23/20 04:07 82 128/69 10/23/20 04:00 92 H 116/81 10/23/20 03:53 98 H 88/57 L 10/23/20 03:44 90 27 H 94 10/23/20 03:37 90 126/77 10/23/20 03:22 85 96/68 L 10/23/20 03:12 87 97/65 L 10/23/20 03:08 88 68/54 L 10/23/20 02:53 90 104/64 100 10/23/20 02:37 96 H 108/62 100 10/23/20 02:23 104 H 91/64 L 100 10/23/20 02:09 35.9 C L 101 H 148/97 H 99 10/23/20 01:52 35.9 C L 82 100/63 99 10/23/20 01:37 36.1 C L 92 H 105/74 99 10/23/20 01:22 36.1 C L 100 H 116/79 99 10/23/20 01:19 35.9 C L 106 H 159/94 H 99 10/23/20 01:09 36.0 C L 118 H 99 10/23/20 00:50 36.0 C L 88 99 10/23/20 00:45 36.0 C L 100 H 10/23/20 00:40 36.0 C L 115 H 10/23/20 00:22 36.1 C L 94 H 122/88 10/23/20 00:17 36.1 C L 89 120/75 10/23/20 00:08 36.1 C L 115 H 195/128 H 100 10/22/20 23:59 36.0 C L 112 H 118/80 100 10/22/20 23:51 36.0 C L 99 H 164/88 H 100 10/22/20 23:37 36.0 C L 97 H 156/109 H 78 L 10/22/20 23:30 35.9 C L 91 H 161/117 H 100 10/22/20 23:22 36.0 C L 85 100 10/22/20 23:17 86 24 100 10/22/20 23:10 35.8 C L 87 141/94 H 100 10/22/20 23:08 35.8 C L 78 10/22/20 23:06 35.8 C L 93 H 25 H 100 10/22/20 23:04 81 10/22/20 23:02 76
--- NOTE | 2020-10-23 14:44 | Cardiology Progress Note ---
Date of Service October 23, 2020 Assessment & Plan (1) Cardiac arrest: Plan: -likely suffered VT/VF arrest related to her acute anterior wall NE. -has demonstrated brief episodes of nonsustained VT on the monitor. -would hold off on amiodarone at this time. -currently weaned off norepinephrine drip. (2) CAD (coronary artery disease): Plan: -s/p proximal LAD ALBA x2 by Dr. Glez last evening. -other disease included 30-40% LCx stenosis. -continue aspirin, Plavix, and Lipitor. (3) Ischemic cardiomyopathy: Plan: -LVEF of 20-25% with a large anteroapical wall motion abnormality. -will add beta blockade and ACEI/ARB as blood pressure allows. -may consider repeat echocardiogram prior to discharge to determine whether life vest indicated. Admission and Anticipated Discharge Date Admission Date: October 22, 2020 Subjective The patient is awake and alert. Tracks my movement with her eyes. Currently on the ventilator. Physical Exam Physical Exam: In general is well-developed well-nourished white female no acute distress. HEENT exam is negative. Neck is supple with full carotid upstrokes. No obvious bruits. Jugular is pressure is difficult to assess. Cardiovascular exam reveals a regular rhythm with distant heart sounds. No obvious murmurs. Lungs are clear without rales, rhonchi or wheezes. Abdomen is soft without bruits. Right upper extremity is ecchymotic from the fingers to the mid humerus. Results & Data ([facility]) Vital Signs (Past 12 Hours) Vital Signs Temp Pulse Resp BP Pulse Ox 10/23/20 13:30 36.6 C 97 H 26 H 100 10/23/20 12:00 35.7 C L 92 H 131/94 95 10/23/20 11:40 86 24 10/23/20 11:01 36.0 C L 79 118/74 94 10/23/20 10:00 36.1 C L 80 111/68 100 10/23/20 08:53 36.2 C L 84 126/85 100 10/23/20 08:00 36.0 C L 81 92 10/23/20 07:59 81 28 H 100 10/23/20 07:37 36.2 C L 84 101/66 10/23/20 07:22 35.8 C L 83 107/65 100 10/23/20 07:07 35.8 C L 77 116/79 100 10/23/20 06:37 35.6 C L 91 H 171/99 H 10/23/20 06:23 35.8 C L 85 97/67 L 10/23/20 06:07 36.5 C 83 145/91 H 99 10/23/20 05:52 91 H 134/77 10/23/20 05:37 36.7 C 92 H 144/88 H 99 10/23/20 05:23 36.8 C 87 114/78 100 10/23/20 05:07 36.8 C 84 121/95 98 10/23/20 04:41 80 99/76 L 100 10/23/20 04:37 82 120/85 100 10/23/20 04:22 88 128/77 100 10/23/20 04:07 82 128/69 10/23/20 04:00 92 H 116/81 10/23/20 03:53 98 H 88/57 L 10/23/20 03:44 90 27 H 94 10/23/20 03:37 90 126/77 10/23/20 03:22 85 96/68 L 10/23/20 03:12 87 97/65 L 10/23/20 03:08 88 68/54 L 10/23/20 02:53 90 104/64 100 PG Care Time/CCT Total # of Minutes Spent Total Time Spent with Patient: Total time spent is greater than 50% in coordination of care (as documented) at patient's floor/unit and/or counseling patient: Coding Level of Care Code 28648 Subseq Hosp Care Lvl 3 Diagnoses Cardiac arrest I46.9 CAD (coronary artery disease) I25.10 Ischemic cardiomyopathy I25.5
--- NOTE | 2020-10-23 16:11 | XCELERA ---
[id number]
[2020-10-23] MEDS ORDERED: STAT IV Infusion **Titration per Protocol STA (16:45)
[2020-10-23] MEDS ORDERED: AMIODARONE / D5W 150 MG/100 ML BAG IV STA (16:45)
[2020-10-23] MEDS ORDERED: AMIODARONE IV BOLUS & DRIP IV STA (16:45)
[2020-10-23] MEDS ORDERED: 0.2 MICRON FILTER SET 1 EA IV ONE (16:45)
--- NOTE | 2020-10-23 16:50 | Electrocardiogram Report ---
Test Reason : Blood Pressure : / mmHG Vent. Rate : 076 BPM Atrial Rate : 076 BPM P-R Int : 182 ms QRS Dur : 174 ms QT Int : 514 ms P-R-T Axes : 082 -57 078 degrees QTc Int : 578 ms Normal sinus rhythm Left atrial enlargement Left axis deviation Non-specific intra-ventricular conduction block Anterolateral injury pattern ACUTE KS / STEMI Abnormal ECG When compared with ECG of 08-APR-2018 11:55, Significant changes have occurred Confirmed by Dakota Fagan ([id number]) on 10/23/2020 4:50:02 PM Referred By: REFERRED SELF Confirmed By:Dakota Fagan
--- NOTE | 2020-10-23 16:52 | Electrocardiogram Report ---
Test Reason : Blood Pressure : / mmHG Vent. Rate : 082 BPM Atrial Rate : 082 BPM P-R Int : 170 ms QRS Dur : 106 ms QT Int : 432 ms P-R-T Axes : 077 035 064 degrees QTc Int : 504 ms Sinus rhythm Low voltage QRS Incomplete right bundle branch block Anterior injury pattern Abnormal ECG When compared with ECG of 22-OCT-2020 20:20, (unconfirmed) Incomplete right bundle branch block has replaced Non-specific intra-ventricular conduction block Serial changes of evolving Anterior infarct Confirmed by Dakota Fagan ([id number]) on 10/23/2020 4:52:05 PM Referred By: REFERRED SELF Confirmed By:Dakota Fagan
[2020-10-23] MEDS ORDERED: AMIODARONE / D5W 360 MG/200 ML BAG IV ONE (16:56)
--- NOTE | 2020-10-23 16:56 | Electroencephalogram ---
EEG Procedure Note Date of Service October 23, 2020 Start / End Times Start Time: 11:20 End Time: 11:[address] Robertson History A 80-year-old woman with cardiac arrest. EEG performed for evaluation of epileptiform activity. Home Medication List Medication Instructions Recorded Confirmed Type No Known Home Medications 10/22/20 10/22/20 History Inpatient Medication List Aspirin (Aspirin 81 Mg Chew) 81 mg PO DAILY [facility] Stop: 11/22/20 08:59 Last Admin: 10/23/20 10:01 Dose: 81 mg Documented by: [id number] Atorvastatin Calcium (Atorvastatin 40 Mg Tab) 80 mg PO QAM MAHAMED Stop: 11/22/20 08:59 Last Admin: 10/23/20 10:00 Dose: 80 mg Documented by: [id number] Fentanyl Citrate (Fentanyl Citrate 100 Mcg/2 Ml Vial) 50 mcg IV Q2H PRN PRN Reason: pain Stop: 11/06/20 01:29 Last Admin: 10/23/20 01:52 Dose: 50 mcg Documented by: [id number] Norepinephrine Bitartrate (Levophed/D5w) 8 mg in 508 mls @ 0 mls/hr IV .Q0M MAHAMED; Protocol Stop: 11/21/20 22:59 Last Titration: 10/22/20 23:35 Dose: 0 mcg/kg/min, 0 mls/hr Documented by: [id number] Titration: 10/22/20 23:30 Dose: 0.06 mcg/kg/min, 10.3 mls/hr Documented by: [id number] Titration: 10/22/20 23:15 Dose: 0.08 mcg/kg/min, 13.8 mls/hr Documented by: [id number] Admin: 10/22/20 23:00 Dose: 0.1 mcg/kg/min, 17.2 mls/hr Documented by: [id number] Cosigned by: [id number] Famotidine 20 mg/ Syringe 5 mls @ 2.5 mls/min IV BID MAHAMED Stop: 11/22/20 08:59 Last Admin: 10/23/20 10:01 Dose: 2.5 mls/min Documented by: [id number] Lactated Ringer's (Lr) 1,000 mls @ 50 mls/hr IV .Q20H [facility] Stop: 11/22/20 00:14 Last Admin: 10/23/20 00:31 Dose: 50 mls/hr Documented by: [id number] Discontinued Medications Albuterol (Albuterol Hfa 8 Gm Inhaler) 4 puffs INH Q6R [facility] Stop: 11/22/20 00:59 Last Admin: 10/23/20 05:15 Dose: Not Given Documented by: [id number] Clopidogrel Bisulfate (Clopidogrel Bisulfate 300 Mg Tab) 600 mg PO NOW STA Stop: 10/22/20 22:55 Last Admin: 10/23/20 01:57 Dose: 600 mg Documented by: [id number] Clopidogrel Bisulfate (Clopidogrel Bisulfate 300 Mg Tab) Confirm Administered Dose 600 mg .ROUTE .STK-MED ONE Stop: 10/23/20 01:57 Last Admin: 10/23/20 01:58 Dose: Not Given Documented by: [id number] Heparin Sodium (Porcine) (Heparin (Porcine) 1000 Unit/Ml 10 Ml (Motor Runner Use Only)) Confirm Administered Dose 10,000 units .ROUTE .STK-MED ONE Stop: 10/22/20 20:48 Last Admin: 10/22/20 22:24 Dose: 8,000 units Documented by: [id number] Sodium Chloride (Nss) 500 mls @ 999 mls/hr IV .Q31M [facility] Stop: 10/22/20 21:00 Last Admin: 10/23/20 01:57 Dose: Not Given Documented by: [id number] Potassium Chloride (K Nilesh / Wtr) 20 meq in 100 mls @ 50 mls/hr IV Q2H [facility] Stop: 10/23/20 05:29 Last Infusion: 10/23/20 06:12 Dose: 0 mls/hr Documented by: [id number] Admin: 10/23/20 03:43 Dose: 50 mls/hr Documented by: [id number] Infusion: 10/23/20 03:28 Dose: 50 mls/hr Documented by: [id number] Admin: 10/23/20 01:28 Dose: 50 mls/hr Documented by: [id number] Infusion: 10/23/20 01:28 Dose: 50 mls/hr Documented by: [id number] Admin: 10/22/20 23:46 Dose: 50 mls/hr Documented by: [id number] Lactated Ringer's (Lr) 1,000 mls @ 500 mls/hr IV .Q2H ONE Stop: 10/23/20 01:16 Last Admin: 10/23/20 07:45 Dose: Not Given Documented by: [id number] Calcium Gluconate 1,000 mg/ (Sodium Chloride) 60 mls @ 240 mls/hr IV 0600 ONE Stop: 10/23/20 06:14 Last Infusion: 10/23/20 06:37 Dose: 0 mls/hr Documented by: [id number] Admin: 10/23/20 06:00 Dose: 240 mls/hr Documented by: [id number] Ipratropium [place] (Ipratropium [place] Hfa Inhaler) 4 puffs INH Q6R MAHAMED Stop: 11/22/20 00:59 Last Admin: 10/23/20 05:16 Dose: Not Given Documented by: [id number] Description This is a 21 electrode EEG with a single channel dedicated to limited EKG. The electrodes were placed in accordance with the International 10-20 system. REPORT: At the onset of the EEG the patient is in an altered mental state. The background is symmetric. The posterior dominant rhythm is not well sustained so the background predominantly consist of 5-6 Hz theta activity with intermittent superimposed myogenic artifact. During the latter part of this recording the patient is more alert and there is obvious eye blink artifact. Photic stimulation does not induce any abnormalities. No stage II sleep transients are recorded. No epileptiform discharges are recorded. Interpretation IMPRESSION: This is an abnormal routine EEG in a patient with altered mentation due to moderate generalized background slowing suggestive of a nonspecific encephalopathy. No epileptiform discharges or electrographic seizures are recorded.
[2020-10-23 19:47] LABS: Calcium 6.1 mg/dl (8.5-10.1); Creatinine Clr Calc Pharmacy 69.1 ml/min; Est GFR (African American) 111.3 ml/min; Magnesium 1.5 mg/dl (1.8-2.4); Phosphorus 1.8 mg/dl (2.5-4.9); Potassium 3.7 mmol/L (3.5-5.1)
[2020-10-23 20:13] LABS: Beta-Hydroxybutyrate 0.78 mg/dl (0.2-2.81)
[2020-10-23 20:57] LABS: BUN Creatinine Ratio 18.4 (10-20); Blood Urea Nitrogen 10 mg/dl (7-18); Calcium 8.5 mg/dl (8.5-10.1); Carbon Dioxide 25 mmol/L (21-32); Chloride 107 mmol/L (98-107); Creatinine Clr Calc Pharmacy 54.3 ml/min; Est GFR (African American) 102.8 ml/min; Est GFR (Non-African American) 88.7 ml/min; Glucose 186 mg/dl (70-99); Magnesium 1.6 mg/dl (1.8-2.4); Potassium 4.4 mmol/L (3.5-5.1); Sodium 139 mmol/L (136-145)
[2020-10-23 21:19] LABS: Phosphorus 2.3 mg/dl (2.5-4.9); Troponin I > 200.000 ng/ml (0-0.045)
[2020-10-23] MEDS: AMIODARONE / D5W 360 MG/200 ML BAG IV SCH (23:32)
[2020-10-24 04:36] LABS: Basophils # (auto) 0.01 K/uL (0-0.2); Basophils % (auto) 0.1 %; Eosinophils # (auto) 0.01 K/uL (0-0.5); Eosinophils % (auto) 0.1 %; Hematocrit (blood only) 30.1 % (37-47); Hemoglobin 9.7 g/dL (12.0-16.0); Immature Granulocytes # (auto) 0.02 K/uL (0.00-0.02); Immature Granulocytes % (auto) 0.1 %; Lymphocytes # (auto) 1.14 K/uL (1.2-3.4); Lymphocytes % (auto) 8.3 %; Mean Corpuscular Hemoglobin 32.9 pg (25-34); Mean Corpuscular Hgb Conc 32.2 g/dL (32-36); Mean Platelet Volume 10.5 fL (7.4-10.4); Monocytes # (auto) 1.21 K/uL (0.11-0.59); Monocytes % (auto) 8.8 %; Neutrophils # (auto) 11.31 K/uL (1.4-6.5); Neutrophils % (auto) 82.6 %; Platelet Count 202 K/uL (130-400); RDW Coefficient of Variation 13.9 % (11.5-14.5); RDW Standard Deviation 52.2 fL (36.4-46.3); Red Blood Count 2.95 M/uL (4.2-5.4)
[2020-10-24] MEDS: MAGNESIUM SULFATE / D5W 1 GM/100 ML BAG IV SCH ×3 (04:40→07:14)
[2020-10-24 04:53] LABS: BUN Creatinine Ratio 17.5 (10-20); Creatinine Clr Calc Pharmacy 54.3 ml/min; Est GFR (African American) 102.8 ml/min; Est GFR (Non-African American) 88.7 ml/min; Magnesium 1.9 mg/dl (1.8-2.4); Potassium 4.1 mmol/L (3.5-5.1)
[2020-10-24 04:54] LABS: Phosphorus 2.5 mg/dl (2.5-4.9)
[2020-10-24] MEDS ORDERED: GLUCOSE 40% GEL 15 GM TUBE PO PRN (05:50)
[2020-10-24] MEDS ORDERED: GLUCAGON FOR INJ 1 MG VIAL SQ PRN (05:50)
[2020-10-24] MEDS ORDERED: GLUCOSE 10 TABS/TUBE PO PRN (05:50)
[2020-10-24] MEDS ORDERED: DEXTROSE 50% 50 ML SYRINGE IV PRN (05:50)
[2020-10-24] MEDS ORDERED: CARBOHYDRATES FOR HYPOGLYCEMIA PO PRN (05:50)
[2020-10-24] MEDS: ATORVASTATIN 40 MG TAB PO SCH (07:28)
[2020-10-24] MEDS: ASPIRIN 81 MG CHEW PO SCH (07:28)
[2020-10-24] MEDS: FAMOTIDINE 20 MG in SYRINGE 3 ML IV SCH (07:31)
[2020-10-24] MEDS: AMIODARONE / D5W 360 MG/200 ML BAG IV SCH ×2 (07:31→12:45)
[2020-10-24] MEDS: INSULIN ASPART 100 UNITS/ML 3 ML PEN SC SCH ×2 (07:37→11:57)
[2020-10-24] MEDS ORDERED: CLOPIDOGREL BISULFATE 75 MG TAB PO SCH (09:00)
--- NOTE | 2020-10-24 10:43 | Hospitalist Progress Note ---
Date of Service October 24, 2020 Assessment & Plan (1) Cardiac arrest: Plan: Out of hospital event VF/VT status post ROSC Cardiogenic shock secondary to ST elevation TN status post PCI Patient brought to the cardiac analyst microbiology lab. Patient found to have 100% acute proximal LAD occlusion. Left and right side filling pressures were noted to be elevated. Subsequent ALBA stent placement. Levophed initiated for cardiogenic shock. Patient blood pressure improved on Levophed. EF 20 to 25% Patient currently in ICU Management of cardiac issues as per dining service worker. Defer decision regarding therapeutic hypothermia to ICU service. Patient was extubated yesterday 10/24/2020 - overnight as well as yesterday patient had episodes of V. fib and V. tach Was started on amiodarone drip yesterday due to this Seen by cardiology this morning as well as critical care physician The plan was to continue dual antiplatelet therapy, amiodarone drip, start beta- shanell Patient however went into V. fib again at 12:16. Per RN, she notified patient's daughter, who declined any further treatment such as shocking the patient. Patient went into cardiac arrest at 12:29. I was then notified and pronounced the patient. At that time patient's daughter was also present at the bedside and was in contact with other family members. 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 Lovenox subcu GI prophylaxis. Famotidine DNR per admitting physician's discussion with patient's family over the phone upon review of prior DNR directives from last confinement and paperwork found by family at home delineating patient's wishes. Continue current medical management but no CPR in the event of another cardiac arrest. These wishes were also communicated with ICU physician. Palliative medicine was consulted due to very poor prognosis. Patient's family requesting updates from providers. Ms. Claribel Reese (daughter), contact #[phone]. Mr. Compa Garcia (son), contact # [phone]. Admission and Anticipated Discharge Date Admission Date: October 22, 2020 Subjective Notified by nursing staff around 12:40 that patient went into V. fib at 12:16 and cardiac arrest followed at 12:29. Patient's nurse first notified patient's daughter over the phone and Dr. Robertson of ICU. Patient's daughter declined any further treatment such as shocking the patient. Prior to this episode, patient was on amiodarone drip. Patient's daughter presently at the bedside and in contact with other family members. Reportedly patient had episode of V. fib V. tach overnight as well. Seen by cardiology this morning as well as critical care physician. Pt with poor prognosis and therefore palliative medicine was also consulted yesterday. I have not seen the patient prior to being notified that patient . Review of Systems Review of Systems: Pt Physical Exam Physical Exam: Patient is lying in bed, on physical exam, there are no heart sounds, no breath sounds, no carotid or radial pulse. Pupils are fixed and dilated. Time of 12:29. Results & Data Results & Data ([facility]) Vital Signs (Past 12 Hours) Vital Signs Temp Pulse Resp BP Pulse Ox 10/24/20 08:36 36.9 C 69 18 104/60 94 10/24/20 08:00 92 10/24/20 07:36 37.3 C 71 16 113/58 L 100 10/24/20 06:36 37.4 C 72 22 103/58 L 100 10/24/20 05:36 37.7 C H 69 23 100/54 L 100 10/24/20 04:36 37.8 C H 76 16 105/68 100 10/24/20 03:36 37.9 C H 77 18 107/59 L 99 10/24/20 02:36 37.9 C H 76 21 114/64 97 10/24/20 01:36 37.9 C H 76 19 113/62 100 10/24/20 00:36 37.9 C H 78 22 99/55 L 95 10/24/20 00:00 75 10/23/20 23:36 38.0 C H 72 19 105/61 100 Laboratory Results 10/24/20 10/24/20 10/24/20 Range/Units 07:36 04:13 04:13 WBC 13.70 H (4.8-10.8) K/uL RBC 2.95 L (4.2-5.4) M/uL Hgb 9.7 L (12.0-16.0) g/dL Hct 30.1 L (37-47) % MCV 102.0 H (80-100) fL MCH 32.9 (25-34) pg MCHC 32.2 (32-36) g/dL RDW Std Deviation 52.2 H (36.4-46.3) fL RDW Coeff of Alex 13.9 (11.5-14.5) % Plt Count 202 (130-400) K/uL MPV 10.5 H (7.4-10.4) fL Immature Gran % (Auto) 0.1 % Neut % (Auto) 82.6 % Lymph % (Auto) 8.3 % [place] % (Auto) 8.8 % Eos % (Auto) 0.1 % Baso % (Auto) 0.1 % Neut # (Auto) 11.31 H (1.4-6.5) K/uL Lymph # (Auto) 1.14 L (1.2-3.4) K/uL [place] # (Auto) 1.21 H (0.11-0.59) K/uL Eos # (Auto) 0.01 (0-0.5) K/uL Baso # (Auto) 0.01 (0-0.2) K/uL Immature Gran # (Auto) 0.02 (0.00-0.02) K/uL Sodium 137 (136-145) mmol/L Potassium 4.1 (3.5-5.1) mmol/L Chloride 105 (98-107) mmol/L Carbon Dioxide 29 (21-32) mmol/L Anion Gap 3.0 (3-11) BUN 10 (7-18) mg/dl Creatinine 0.56 L (0.6-1.2) mg/dl Est Cr Clr Drug Dosing 54.3 ml/min Est GFR ( Amer) 102.8 ml/min Est GFR (Non-Af Amer) 88.7 ml/min BUN/Creatinine Ratio 17.5 (10-20) Glucose 221 H (70-99) mg/dl POC Glucose 120 H (70-99) mg/dl Lactate (0.4-2.0) mmol/L Calcium 8.0 L (8.5-10.1) mg/dl Phosphorus 2.5 (2.5-4.9) mg/dl Magnesium 1.9 (1.8-2.4) mg/dl Troponin I 165.000 H* (0-0.045) ng/ml Beta-Hydroxybutyric Acd (0.2-2.81) mg/dl 10/23/20 10/23/20 10/23/20 Range/Units 20:16 19:50 19:03 WBC (4.8-10.8) K/uL RBC (4.2-5.4) M/uL Hgb (12.0-16.0) g/dL Hct (37-47) % MCV (80-100) fL MCH (25-34) pg MCHC (32-36) g/dL RDW Std Deviation (36.4-46.3) fL RDW Coeff of Alex (11.5-14.5) % Plt Count (130-400) K/uL MPV (7.4-10.4) fL Immature Gran % (Auto) % Neut % (Auto) % Lymph % (Auto) % [place] % (Auto) % Eos % (Auto) % Baso % (Auto) % Neut # (Auto) (1.4-6.5) K/uL Lymph # (Auto) (1.2-3.4) K/uL [place] # (Auto) (0.11-0.59) K/uL Eos # (Auto) (0-0.5) K/uL Baso # (Auto) (0-0.2) K/uL Immature Gran # (Auto) (0.00-0.02) K/uL Sodium 139 138 (136-145) mmol/L Potassium 4.4 D 3.7 D (3.5-5.1) mmol/L Chloride 107 109 H (98-107) mmol/L Carbon Dioxide 25 20 L (21-32) mmol/L Anion Gap 7.0 9.0 (3-11) BUN 10 9 (7-18) mg/dl Creatinine 0.56 L 0.44 L (0.6-1.2) mg/dl Est Cr Clr Drug Dosing 54.3 69.1 ml/min Est GFR ( Amer) 102.8 111.3 ml/min Est GFR (Non-Af Amer) 88.7 96.0 ml/min BUN/Creatinine Ratio 18.4 20.0 (10-20) Glucose 186 H 385 H* (70-99) mg/dl POC Glucose 100 H (70-99) mg/dl Lactate (0.4-2.0) mmol/L Calcium 8.5 D 6.1 L D (8.5-10.1) mg/dl Phosphorus 2.3 L 1.8 L D (2.5-4.9) mg/dl Magnesium 1.6 L 1.5 L (1.8-2.4) mg/dl Troponin I > 200.000 H* (0-0.045) ng/ml Beta-Hydroxybutyric Acd 0.78 (0.2-2.81) mg/dl 10/23/20 10/23/20 10/23/20 Range/Units 19:03 16:05 12:21 WBC (4.8-10.8) K/uL RBC (4.2-5.4) M/uL Hgb (12.0-16.0) g/dL Hct (37-47) % MCV (80-100) fL MCH (25-34) pg MCHC (32-36) g/dL RDW Std Deviation (36.4-46.3) fL RDW Coeff of Alex (11.5-14.5) % Plt Count (130-400) K/uL MPV (7.4-10.4) fL Immature Gran % (Auto) % Neut % (Auto) % Lymph % (Auto) % [place] % (Auto) % Eos % (Auto) % Baso % (Auto) % Neut # (Auto) (1.4-6.5) K/uL Lymph # (Auto) (1.2-3.4) K/uL [place] # (Auto) (0.11-0.59) K/uL Eos # (Auto) (0-0.5) K/uL Baso # (Auto) (0-0.2) K/uL Immature Gran # (Auto) (0.00-0.02) K/uL Sodium (136-145) mmol/L Potassium (3.5-5.1) mmol/L Chloride (98-107) mmol/L Carbon Dioxide (21-32) mmol/L Anion Gap (3-11) BUN (7-18) mg/dl Creatinine (0.6-1.2) mg/dl Est Cr Clr Drug Dosing ml/min Est GFR ( Amer) ml/min Est GFR (Non-Af Amer) ml/min BUN/Creatinine Ratio (10-20) Glucose (70-99) mg/dl POC Glucose 125 H 113 H (70-99) mg/dl Lactate (0.4-2.0) mmol/L Calcium (8.5-10.1) mg/dl Phosphorus (2.5-4.9) mg/dl Magnesium (1.8-2.4) mg/dl Troponin I 192.000 H* (0-0.045) ng/ml Beta-Hydroxybutyric Acd (0.2-2.81) mg/dl 10/23/20 10/23/20 Range/Units 10:21 10:21 WBC (4.8-10.8) K/uL RBC (4.2-5.4) M/uL Hgb (12.0-16.0) g/dL Hct (37-47) % MCV (80-100) fL MCH (25-34) pg MCHC (32-36) g/dL RDW Std Deviation (36.4-46.3) fL RDW Coeff of Alex (11.5-14.5) % Plt Count (130-400) K/uL MPV (7.4-10.4) fL Immature Gran % (Auto) % Neut % (Auto) % Lymph % (Auto) % [place] % (Auto) % Eos % (Auto) % Baso % (Auto) % Neut # (Auto) (1.4-6.5) K/uL Lymph # (Auto) (1.2-3.4) K/uL [place] # (Auto) (0.11-0.59) K/uL Eos # (Auto) (0-0.5) K/uL Baso # (Auto) (0-0.2) K/uL Immature Gran # (Auto) (0.00-0.02) K/uL Sodium (136-145) mmol/L Potassium (3.5-5.1) mmol/L Chloride (98-107) mmol/L Carbon Dioxide (21-32) mmol/L Anion Gap (3-11) BUN (7-18) mg/dl Creatinine (0.6-1.2) mg/dl Est Cr Clr Drug Dosing ml/min Est GFR ( Amer) ml/min Est GFR (Non-Af Amer) ml/min BUN/Creatinine Ratio (10-20) Glucose (70-99) mg/dl POC Glucose (70-99) mg/dl Lactate 4.9 H* (0.4-2.0) mmol/L Calcium (8.5-10.1) mg/dl Phosphorus (2.5-4.9) mg/dl Magnesium (1.8-2.4) mg/dl Troponin I > 200.000 H* (0-0.045) ng/ml Beta-Hydroxybutyric Acd (0.2-2.81) mg/dl Medications Administered Current Inpatient Medications Albuterol (Albut/Ipratrop 3mg/0.5mg Neb 3 Ml Vial) 3 ml NEB Q4R PRN PRN Reason: Shortness Of Breath Or Wheezing Stop: 11/22/20 06:59 Aspirin (Aspirin 81 Mg Chew) 81 mg PO DAILY [facility] Stop: 11/22/20 08:59 Last Admin: 10/24/20 07:28 Dose: 81 mg Documented by: Atorvastatin Calcium (Atorvastatin 40 Mg Tab) 80 mg PO QAM [facility] Stop: 11/22/20 08:59 Last Admin: 10/24/20 07:28 Dose: 80 mg Documented by: Clopidogrel Bisulfate (Clopidogrel Bisulfate 75 Mg Tab) 75 mg PO QAM [facility] Stop: 11/23/20 08:59 Last Admin: 10/24/20 07:28 Dose: 75 mg Documented by: Dextrose (Dextrose 50% 50 Ml Syringe) 25 - 50 ml IV UD PRN; Protocol PRN Reason: Hypoglycemia Protocol Stop: 11/23/20 05:49 Glucagon (Glucagon For Inj 1 Mg Vial) 1 mg SQ UD PRN; Protocol PRN Reason: Hypoglycemia Protocol Stop: 11/23/20 05:49 Glucose (Glucose 10 Tabs/Tube) 4 - 8 tabs PO UD PRN; Protocol PRN Reason: Hypoglycemia Protocol Stop: 11/23/20 05:49 Glucose (Glucose 40% Gel 15 Gm Tube) 15 - 30 gm PO UD PRN; Protocol PRN Reason: Hypoglycemia Protocol Stop: 11/23/20 05:49 Famotidine 20 mg/ Syringe 5 mls @ 2.5 mls/min IV BID [facility] Stop: 11/22/20 08:59 Last Admin: 08/18/21 07:31 Dose: 2.5 mls/min Documented by: Acetaminophen (Ofirmev) 65 mls @ 200 mls/hr IV Q8H PRN; Protocol PRN Reason: fever/pain Stop: 10/25/20 23:16 Promethazine HCl 6.25 mg/ (Sodium Chloride) 50.25 mls @ 201 mls/hr IV Q6H PRN PRN Reason: Nausea And Vomiting Stop: 11/21/20 23:16 Amiodarone HCl/Dextrose (Nexterone / D5w) 360 mg in 200 mls @ 33.333 mls/hr IV .Q6H MAHAMED Stop: 11/22/20 22:59 Last Admin: 10/24/20 07:31 Dose: 1 mg/min, 33.3 mls/hr Documented by: Magnesium Sulfate/Dextrose (Magnesium Sulfate / D5w) 1 gm in 100 mls @ 50 mls/hr IV Q2H MAHAMED Stop: 10/24/20 10:44 Last Infusion: 10/24/20 07:14 Dose: Infused Documented by: Insulin Aspart (Insulin Aspart 100 Units/Ml 3 Ml Pen) 0 units SC ACHS MAHAMED Stop: 11/23/20 07:29 Last Admin: 10/24/20 07:37 Dose: Not Given Documented by: Miscellaneous (Icu Protocol For Hyperglycemia) 1 ea N/A PRN PRN; Protocol PRN Reason: Hyperglycemia Protocol Stop: 10/24/20 23:16 Miscellaneous (Carbohydrates For Hypoglycemia ) 15 - 30 gm PO UD PRN PRN Reason: Hypoglycemia Protocol Stop: 11/23/20 05:49
--- NOTE | 2020-10-24 10:51 | Critical Care Progress Note ---
Date of Service October 24, 2020 Assessment & Plan (1) Cardiac arrest: Plan: Reason Critically Ill: 80-year-old female presents to the ICU following V. fib cardiac arrest requiring CPR and defibrillation. Noted to have STEMI on EKG and underwent cardiac cath with successful PCI to LAD x2. Neuro - She is extubated. She does appear alert, but her mental status waxes and wanes. Likely an element of anoxic brain injury. Cardiac - Cardiac arrest/cardiogenic shock/STEMIas described in HPI patient underwent CPR and defibrillation x4 with 1 round of epinephrine and 100 mg lidocaine for V. fib/V. tach arrest -Status post cardiac cath with successful PCI x2 to the LAD. She has evidence of severe ischemic cardiomyopathy. She has also periodic episodes of V. tach/V. fib. Continue to optimize electrolytes. Currently on amiodarone drip. Family has decided on no escalation of care. She is currently DNR/DNI. Respiratory -oxygen requirements are minimal. GI -swallow study pending per speech. RENAL/LYTES -optimize electrolytes. - Foleystrict I's and O's ENDO - No history of diabetes TSH elevated but T4 within normal limits HEME -hemoglobin downtrending. Holding anticoagulation. ID - Notification for infectious process at this time LINES/IV ACCESS - Peripheral IVs DVT PROPHYLAXIS - SCDs, Lovenox on hold. Palliative care consulted due to poor prognosis. Stable for transfer down to the floor. Family has decided not to escalate care. Had an extensive discussion with the patient's daughter and son. Son is currently in [place]. Family requests comfort measures if her condition declines. (2) Hypoxia: (3) Hypokalemia: (4) STEMI (ST elevation myocardial infarction): (5) Anoxic brain injury: (6) Hypotension: (7) COPD (chronic obstructive pulmonary disease): Admission and Anticipated Discharge Date Admission Date: October 22, 2020 Subjective Patient seen and examined. She has not been very verbal, but she does appear to follow commands. She has had episodes of V. tach/V. fib overnight. Her dose of amiodarone was increased to 1 mg/h. She is hemodynamically stable at present. Oxygen demands are minimal. She appears comfortable. Review of Systems Review of Systems: Unobtainable due to cognitive status Physical Exam Physical Exam: Constitutional: Weak and frail appearing. No apparent distress. Eyes: Pupils are equal round and reactive to light. Conjunctivae are normal. Anicteric sclera. Ears nose, mouth and throat: Normal posterior oropharynx. Uvula is midline. Neck: Trachea is midline. Visual inspection is normal. Respiratory: Mild crackles bilaterally. Cardiovascular: Regular rate and rhythm. No murmurs. No edema. Right arm appears purpleish. Radial pulse palpable. Gastrointestinal: Normal bowel sounds, soft, nontender and nondistended. No hepatosplenomegaly noted. Musculoskeletal: No cyanosis. Patient is able to move all extremities. Strength is 5 out of 5 in the upper and lower extremities. Skin: No rashes, warm dry and intact. Peripheral right extremity. Neurologic: No obvious focal neurological deficits seen. Psychiatric: Does not appear anxious. Lethargic. Results & Data Results & Data ([facility]) Vital Signs (Past 12 Hours) Vital Signs Temp Pulse Resp BP Pulse Ox 10/24/20 08:36 98.4 F 69 18 104/60 94 10/24/20 08:00 92 10/24/20 07:36 99.1 F 71 16 113/58 L 100 10/24/20 06:36 99.3 F 72 22 103/58 L 100 10/24/20 05:36 99.9 F H 69 23 100/54 L 100 10/24/20 04:36 100.0 F H 76 16 105/68 100 10/24/20 03:36 100.2 F H 77 18 107/59 L 99 10/24/20 02:36 100.2 F H 76 21 114/64 97 10/24/20 01:36 100.2 F H 76 19 113/62 100 10/24/20 00:36 100.2 F H 78 22 99/55 L 95 10/24/20 00:00 75 10/23/20 23:36 100.4 F H 72 19 105/61 100 Vital signs, labs and imaging personally reviewed Coding Level of Care Code 48368 Subseq Hosp Care Lvl 2 Diagnoses Cardiac arrest I46.9 Hypoxia R09.02 Hypokalemia E87.6 STEMI (ST elevation myocardial infarction) I21.3 Anoxic brain injury G93.1 Hypotension I95.9 COPD (chronic obstructive pulmonary disease) J44.9
--- NOTE | 2020-10-24 11:33 | Cardiology Progress Note ---
Date of Service October 24, 2020 Assessment & Plan (1) STEMI (ST elevation myocardial infarction): Plan: - Post PCI with DESx2 to LAD 2. Ischemic cardiomyopathy -- EF 20-25% 3. Recurrent ventricular ectopy 4. Anoxic brain injury 5. RUE hematoma 6. Anemia More awake/alert this morning, verbally answering some questions. Recurrent ventricular ectopy, now on amio Hemodynamically stable No signs of heart failure Impressive RUE ecchymosis but does not appear vascularly compromised. -- continue amiodarone infusion. -- start low dose beta-shanell, metoprolol 12.5 mg BID -- continue DAPT with ASA/Clopidogrel -- replete electrolytes as doing. Appreciate ICU team and hospital medicine care. Admission and Anticipated Discharge Date Admission Date: October 22, 2020 Subjective Patient awake, alert. Able to answer yes/no questions. AOx2. Denies any pain. Episodes of sustained VF/VT last night this AM. On amiodarone. Review of Systems Review of Systems: All systems reviewed & are unremarkable except as noted in HPI & below Physical Exam Physical Exam: General: comfortable, AOx2 HEENT: Sclerae anicteric Lungs: Clear anteriorly Cardiac: Regular rate and rhythm, no murmurs. No JVD. Vascular: Diffuse ecchymosis RUE extending up to above elbow. Forearm is soft. Faint palpable radial pulse. Slightly diminished cap refill. 2+ brachial artery pulse Abdomen: Soft Extremities: Well perfused, no peripheral edema. Faint DP pulses bilaterally. Results & Data ([facility]) Vital Signs (Past 12 Hours) Vital Signs Temp Pulse Resp BP Pulse Ox 10/24/20 10:36 97.9 F 76 23 94/60 L 94 10/24/20 09:36 98.8 F 70 19 103/64 92 10/24/20 08:36 98.4 F 69 18 104/60 94 10/24/20 08:00 92 10/24/20 07:36 99.1 F 71 16 113/58 L 100 10/24/20 06:36 99.3 F 72 22 103/58 L 100 10/24/20 05:36 99.9 F H 69 23 100/54 L 100 10/24/20 04:36 100.0 F H 76 16 105/68 100 10/24/20 03:36 100.2 F H 77 18 107/59 L 99 10/24/20 02:36 100.2 F H 76 21 114/64 97 10/24/20 01:36 100.2 F H 76 19 113/62 100 10/24/20 00:36 100.2 F H 78 22 99/55 L 95 10/24/20 00:00 75 10/23/20 23:36 100.4 F H 72 19 105/61 100 PG Care Time/CCT Total # of Minutes Spent Total Time Spent with Patient: Total time spent is greater than 50% in coordination of care (as documented) at patient's floor/unit and/or counseling patient: Coding Level of Care Code 34639 Subseq Hosp Care Lvl 3 Diagnoses STEMI (ST elevation myocardial infarction) I21.3
[2020-10-24] MEDS ORDERED: METOPROLOL TARTRATE 25 MG TAB PO SCH (11:45)
--- NOTE | 2020-10-24 13:05 | Hospitalist Progress Note ---
Date of Service October 24, 2020 Assessment & Plan Admission and Anticipated Discharge Date Admission Date: October 22, 2020 Subjective NOTE Notified by nursing staff around 12:40 that patient went into V. fib at 12:16 and cardiac arrest followed at 12:29. Patient's nurse first notified patient's daughter over the phone and Dr. Robertson of ICU. Patient's daughter declined any further treatment such as shocking the patient. Prior to this episode, patient was on amiodarone drip. Patient's daughter presently at the bedside and in contact with other family members. Patient is lying in bed, on physical exam, there are no heart sounds, no breath sounds, no carotid or radial pulse. Pupils are fixed and dilated. Time of 12:29. Jayce Aceves MD Results & Data Results & Data ([facility]) Vital Signs (Past 12 Hours) Vital Signs Temp Pulse Resp BP Pulse Ox 10/24/20 12:00 37.0 C 73 17 95 10/24/20 11:36 36.7 C 80 22 111/61 94 10/24/20 10:36 36.6 C 76 23 94/60 L 94 10/24/20 09:36 37.1 C 70 19 103/64 92 10/24/20 08:36 36.9 C 69 18 104/60 94 10/24/20 08:00 92 10/24/20 07:36 37.3 C 71 16 113/58 L 100 10/24/20 06:36 37.4 C 72 22 103/58 L 100 10/24/20 05:36 37.7 C H 69 23 100/54 L 100 10/24/20 04:36 37.8 C H 76 16 105/68 100 10/24/20 03:36 37.9 C H 77 18 107/59 L 99 10/24/20 02:36 37.9 C H 76 21 114/64 97 10/24/20 01:36 37.9 C H 76 19 113/62 100
--- NOTE | 2020-10-24 13:27 | Discharge Summary ---
Date of Service October 24, 2020 Admission HPI Per Admitting Provider History obtained from family and records. Unable to obtain history from patient secondary to intubated state. Medical history significant for COPD, ongoing tobacco abuse. Last confinement 2018 for COPD exacerbation. Patient suddenly became unresponsive at home, suddenly slumped as per daughter. Patient initially noted to have a pulse but later noted to have agonal respiration. CPR started at home by a neighbor who is a nurse. Upon EMS arrival, patient noted to have V. fib/V. tach on rhythm analysis. Subsequent defibrillation done followed by epinephrine administration. ROSC noted with patient responding to pain. Subsequent intubation done by EMS. 3 more episodes of VT on route to the hospital status post defibrillation. Heart alert called at the ER with note of ST elevation on the anterolateral leads. Patient brought to the cardiac labor relations specialist. Patient found to have 100% acute proximal LAD occlusion. Left and right side filling pressures were noted to be elevated. Subsequent ALBA stent placement. L evophed initiated for cardiogenic shock. Patient currently at the ICU. 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, lives with daughter Admission Exam Per Admitting Provider GENERAL: Intubated, no respiratory distress, underweight SKIN: Normal color, cool HEENT: [place] palpebral conjunctivae, no ptosis, dry buccal mucosa NECK : Supple, no tenderness CHEST : Decreased breath sounds, occasional expiratory wheezes, no tenderness HEART : RRR, no obvious murmurs ABDOMEN: no distention, nontender EXTREMITIES : No LE swelling/tenderness, no other conspicuous deformities noted NEUROLOGIC : Minimally responsive to pain, no facial asymmetry, no other gross focality Principal Diagnosis Ventricular fibrillation, ventricular tachycardia, cardiac arrest STEMI (anterior wall myocardial infarction) 100% LAD occlusion s/p LAD ALBA x2 Ischemic cardiomyopathy, EF 20-25% Discharge Exam Patient is lying in bed, on physical exam, there are no heart sounds, no breath sounds, no carotid or radial pulse. Pupils are fixed and dilated. Time of 12:29. Discharge Data Allergies Allergy/AdvReac Type Severity Reaction Status Date / Time No Known Allergies Allergy Unverified 10/22/20 20:54 Consultations 10/22/20 22:43 Consult Scientific Software Engineer Routine 10/22/20 22:50 Consult Cardiac Rehabilitation Routine 10/23/20 09:53 Consult Palliative Care Routine Procedures Performed Operation Date: 10/22/20 20:40 Actual Procedures p Aspiration/PCI w/ALBA for Stemi - Uriah Glez MD Operation Date: 10/22/20 21:00 Actual Procedures p Aspiration/PCI w/ALBA for Stemi - Uriah Glez MD s Cineradiography w/Routine Exam - Uriah Glez MD s Cath, Right and Left Heart - Uriah Glez MD Ordered Studies 10/22/20 20:42 CL Cath Imgs for PACS use only Stat 10/22/20 22:08 CT head/brain wo con Urgent IMPRESSION: No acute intracranial abnormality. Hospital Course (1) Cardiac arrest: Ventricular fibrillation, ventricular tachycardia, cardiac arrest STEMI (anterior wall myocardial infarction) 100% LAD occlusion s/p LAD ALBA x2 Ischemic cardiomyopathy, EF 20-25% Out of hospital event VF/VT status post ROSC Cardiogenic shock secondary to ST elevation [place] status post PCI Patient brought to the cardiac labor relations specialist. Patient found to have 100% acute proximal LAD occlusion. Left and right side filling pressures were noted to be elevated. Subsequent ALBA stent placement. Levophed initiated for cardiogenic shock. Patient blood pressure improved on Levophed. EF 20 to 25% Patient currently in ICU Management of cardiac issues as per supervising deputy. Defer decision regarding therapeutic hypothermia to ICU service. Patient was extubated yesterday 10/24/2020 - overnight as well as yesterday patient had episodes of V. fib and V. tach Was started on amiodarone drip yesterday due to this Seen by cardiology this morning as well as critical care physician The plan was to continue dual antiplatelet therapy, amiodarone drip, start beta- shanell Patient however went into V. fib again at 12:16. Per RN, she notified patient's daughter, who declined any further treatment such as shocking the patient. Patient went into cardiac arrest at 12:29. I was then notified and pronounced the patient. At that time patient's daughter was also present at the bedside and was in contact with other family members. 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 Lovenox subcu GI prophylaxis. Famotidine DNR per admitting physician's discussion with patient's family over the phone upon review of prior DNR directives from last confinement and paperwork found by family at home delineating patient's wishes. Continue current medical management but no CPR in the event of another cardiac arrest. These wishes were also communicated with ICU physician. Palliative medicine was consulted due to very poor prognosis. Patient's family requesting updates from providers. Ms. Claribel Reese (daughter), contact #[phone]. Mr. Compa Garcia (son), contact # [phone]. Total Time Total Time Spent Total Time Spent (In Minutes): 20 Discharge Plan Discharge Items Patient Disposition: Reason For Visit: CARDIAC ARREST Discharge Diagnosis: Ventricular fibrillation, ventricular tachycardia, cardiac arrest STEMI (anterior wall myocardial infarction) 100% LAD occlusion s/p LAD ALBA x2 Ischemic cardiomyopathy, EF 20-25% Follow-up/Referrals: Julia Ruiz PA-C [Primary Care Provider] - Addtl Attending Provider Instructions: Time of 10/24/2020 at 12:29. Stand-Alone Forms: 7 [employer] [facility] Medications and DC Order Prescriptions: No Action No Known Home Medications RF: 0 Admission Data Admit Date/Time: 10/22/20 22:43 Attending Provider: Dionicio Aceves Admit Provider: Michael Montenegro Primary Care Provider: Julia Ruiz Other Providers: Aime Robertson ; Cierra Traylor ; Bladimir Waite
== END 2020-10-24 15:50 | disposition expired | DRG 246 ==
LOC: ED 20:14 → CC 21:11 → SUATTDRO 22:43 → 1E 22:43